=== PATIENT | female | born 1945 | race Hispanic/Latino ===

== ENCOUNTER 2017-09-03 09:17 | Emergency (ER) | payer MEDICARE ==
[2017-09-03] MEDS ORDERED: FENTANYL CITR 100 MCG/2 ML ONE (10:08)
[2017-09-03] MEDS ORDERED: KETOROLAC 30 MG/ML INJ ONE (10:08)
[2017-09-03] MEDS ORDERED: ONDANSETRON 4 MG/2 ML VIAL ONE (10:08)
[2017-09-03 10:54] LABS: BUN Blood Urea Nitrogen 18 mg/dL (6-20); Bicarbonate 28 mEq/L (21-31); Glucose Level 86 mg/dL (65-120); Potassium 3.7 mEq/L (3.6-5.0); Sodium Level 136 mEq/L (135-145)
[2017-09-03 11:00] LABS: Absolute Monocytes 0.4 K/uL (0.1-1.3); Absolute Neutrophil 2.4 K/uL (1.8-8.0); Basophils % 0.9 % (0-1.3); Eosinophils % 1.3 % (0-4.4); Lymphocytes % 41.5 % (15.3-44.8); MCH 29.8 pg (27.0-35.0); MCV 87.6 fL (80-100); MPV 9.3 fL (7.6-11.3); Monocytes % 8.3 % (3.3-12.3); RBC Red Blood Cell Count 4.34 M/uL (3.86-4.86)
--- NOTE | 2017-09-03 13:02 | RAD REPORT ---
EXAM DESCRIPTION: RAD - Shoulder Left 2 View - 09/03/2017 12:43 pm CLINICAL HISTORY: Left shoulder pain FINDINGS: No fracture or dislocation is seen. Mild osteoarthritis involves the acromioclavicular joint. Small calcification lies adjacent to the tracy perolateral aspect of the humeral head which may indicate calcific tendinitis. The bones are osteopor otic
--- NOTE | 2017-09-03 13:09 | EDPHYS ---
Physician Documentation [facility] Name: Elmira Jones Age: 71 yrs Sex: Female : 1945 Arrival Date: 09/03/2017 Time: 09:22 Bed 17 Private MD: ED Physician Ender Byrne HPI: 09/03 10:43 This 71 yrs old Female presents to ER via Ambulatory with complaints of Arm jr8 Pain, Leg Pain. 10:43 Patient presents to ED with complaints of low back pain radiating down right leg along jr8 with bilateral shoulder pain. Sudden onset today. Denies trauma . Severity of symptoms: At their worst the symptoms were moderate in the emergency department the symptoms are unchanged. The patient has not experienced similar symptoms in the past. The patient has not recently seen a physician. Historical: - Allergies: 10:07 PENICILLINS; iw 10:07 Aspirin; iw - Immunization history:: Adult Immunizations up to date. - Social history:: Smoking status: Patient/guardian denies using tobacco. ROS: 10:43 Eyes: Negative for injury, pain, redness, and discharge, ENT: Negative for injury, jr8 pain, and discharge, Neck: Negative for injury, pain, and swelling, Cardiovascular: Negative for chest pain, palpitations, and edema, Respiratory: Negative for shortness of breath, cough, wheezing, and pleuritic chest pain, Abdomen/GI: Negative for abdominal pain, nausea, vomiting, diarrhea, and constipation, Skin: Negative for injury, rash, and discoloration, Neuro: Negative for headache, weakness, numbness, tingling, and seizure. 10:43 Back: 10:43 Back: Positive for pain at rest, pain with movement, radiated pain, of the low back area. 10:43 MS/extremity: Positive for decreased range of motion, pain, tenderness, of the right and left shoulders . Exam: 10:43 Head/Face: Normocephalic, atraumatic. Eyes: Pupils equal round and reactive to light, jr8 extra-ocular motions intact. Lids and lashes normal. Conjunctiva and sclera are non-icteric and not injected. Cornea within normal limits. Periorbital areas with no swelling, redness, or edema. ENT: Nares patent. No nasal discharge, no septal abnormalities noted. Tympanic membranes are normal and external auditory canals are clear. Oropharynx with no redness, swelling, or masses, exudates, or evidence of obstruction, uvula midline. Mucous membranes moist. Neck: Trachea midline, no thyromegaly or masses palpated, and no cervical lymphadenopathy. Supple, full range of motion without nuchal rigidity, or vertebral point tenderness. No Meningismus. Chest/axilla: Normal chest wall appearance and motion. Nontender with no deformity. No lesions are appreciated. Cardiovascular: Regular rate and rhythm with a normal S1 and S2. No gallops, murmurs, or rubs. Normal PMI, no JVD. No pulse deficits. Respiratory: Lungs have equal breath sounds bilaterally, clear to auscultation and percussion. No rales, rhonchi or wheezes noted. No increased work of breathing, no retractions or nasal flaring. Abdomen/GI: Soft, non-tender, with normal bowel sounds. No distension or tympany. No guarding or rebound. No evidence of tenderness throughout. Skin: Warm, dry with normal turgor. Normal color with no rashes, no lesions, and no evidence of cellulitis. Neuro: Awake and alert, GCS 15, oriented to person, place, time, and situation. Cranial nerves II-XII grossly intact. Motor strength 5/5 in all extremities. Sensory grossly intact. Cerebellar exam normal. Normal gait. 10:43 Back: pain, that is moderate, of the left low back, ROM is painful, normal spinal alignment noted, CVA tenderness, is absent, vertebral tenderness, is not appreciated, Straight leg raises: left lower extremity illicits pain, at 30 degrees. 10:43 Musculoskeletal/extremity: Extremities: grossly normal except: noted in the right arm: decreased ROM, pain, noted in the left arm: decreased ROM, pain, Circulation is intact in all extremities. Sensation intact. Vital Signs: 10:39 BP 173 / 78; Pulse 61; Resp 16; Pulse Ox 100% on R/A; Pain 9/10; em 11:46 BP 156 / 67; Pulse 58; Resp 18; Pulse Ox 97% on R/A; em 12:59 BP 161 / 72; Pulse 64; Resp 18; Pulse Ox 99% on R/A; Pain 6/10; em MDM: 09:51 Patient medically screened. jr8 13:07 Data reviewed: vital signs, nurses notes, lab test result(s), radiologic studies, plain jr8 films, and as a result, I will discharge patient. Data interpreted: Pulse oximetry: on room air is 97 %. Interpretation: normal. Counseling: I had a detailed discussion with the patient and/or guardian regarding: the historical points, exam findings, and any diagnostic results supporting the discharge/admit diagnosis, lab results, radiology results, the need for outpatient follow up, a family practitioner, to return to the emergency department if symptoms worsen or persist or if there are any questions or concerns that arise at home. 09/03 10:01 Order name: CBC with Diff; Complete Time: 11:20 jr8 09/03 10:01 Order name: Basic Metabolic Panel; Complete Time: 10:56 jr8 09/03 12:03 Order name: Shoulder Left (2 View) XRAY; Complete Time: 13:07 em 09/03 10:01 Order name: IV; Complete Time: 10:39 jr8 09/03 10:01 Order name: EKG - Nurse/Tech; Complete Time: 10:39 jr8 09/03 10:01 Order name: EKG; Complete Time: 10:01 jr8 Administered Medications: 10:40 Drug: fentaNYL (PF) 50 mcg Route: IVP; Site: right antecubital; sg 12:03 Follow up: Response: No adverse reaction em 10:40 Drug: Zofran 4 mg Route: IVP; Site: right antecubital; sg 12:04 Follow up: Response: No adverse reaction em 10:40 Drug: TORadol 30 mg Route: IVP; Site: right antecubital; sg 12:04 Follow up: Response: No adverse reaction em Disposition: 17:22 Co-signature as Attending Physician, Ender Byrne MD I agree with the assessment and kdr plan of care. Disposition: 09/03/17 13:08 Discharged to Home. Impression: Lumbago with sciatica, right side, Pain in shoulder. - Condition is Stable. - Discharge Instructions: Sciatica, Shoulder Pain. - Prescriptions for Cyclobenzaprine 10 mg Oral Tablet - take 1 tablet by ORAL route every 8 hours As needed; 30 tablet. Tramadol 50 mg Oral Tablet - take 1 tablet by ORAL route every 8 hours as needed; 12 tablet. - Work release form, Medication Reconciliation Form, Thank You Letter, Antibiotic Education, Prescription Opioid Use form. - Follow up: Private Physician; When: 5 - 6 days; Reason: Recheck today's complaints, Continuance of care, Re-evaluation by your physician. - Problem is new. - Symptoms have improved. Signatures: Dispatcher [employer] Adair Martinez, RN RN Ender Vasquez MD MD kdr Munoz, Edgar, ALLIANCE DIRECTOR ALLIANCE DIRECTOR Alison Jimenez RN RN iw Roszak, Josh, PA PA jr8
--- NOTE | 2017-09-03 13:09 | ER ---
Nurse's Notes [facility] Name: Elmira Jones Age: 71 yrs Sex: Female : 1945 Arrival Date: 09/03/2017 Time: 09:22 Bed 17 Private MD: Diagnosis: Lumbago with sciatica, right side;Pain in shoulder Presentation: 09/03 10:05 Presenting complaint: Patient states: has had pain around waist, radiating to right leg iw since Wednesday, also has had pain to RFA, and left shoulder last night, throbbing pain, also has had intermittent numbness to left hand and numbness to her tongue when she eats sometimes, pt is diabetic. Transition of care: patient was not received from another setting of care. Onset of symptoms was August 29, 2017. Initial Sepsis Screen: Does the patient meet any 2 criteria? No. Patient's initial sepsis screen is negative. Does the patient have a suspected source of infection? No. Patient's initial sepsis screen is negative. Care prior to arrival: None. 10:05 Method Of Arrival: Ambulatory iw 10:05 Acuity: CM 3 iw Triage Assessment: 10:43 General: Appears in no apparent distress. uncomfortable, Behavior is calm, anxious. em Pain: Complains of pain in anterior aspect of right shoulder Pain currently is 8 out of 10 on a pain scale. Pain began 4 days ago. Historical: - Allergies: 10:07 PENICILLINS; iw 10:07 Aspirin; iw - Immunization history:: Adult Immunizations up to date. - Social history:: Smoking status: Patient/guardian denies using tobacco. Screenin:42 Abuse screen: Denies threats or abuse. Nutritional screening: No deficits noted. em Tuberculosis screening: No symptoms or risk factors identified. Fall Risk None identified. Assessment: 10:45 General: Appears in no apparent distress. uncomfortable, Behavior is cooperative, em anxious. Pain: Complains of pain in anterior aspect of right shoulder Pain Quality of pain is described as sharp, Pain began 4 days. Neuro: Level of Consciousness is awake, alert, obeys commands, Oriented to person, place, time, situation. Cardiovascular: Capillary refill < 3 seconds Patient's skin is warm and dry. Respiratory: Airway is patent Respiratory effort is even, unlabored, Respiratory pattern is regular, symmetrical. GI: Abdomen is round non-distended, Patient currently denies diarrhea, nausea, vomiting. : No signs and/or symptoms were reported regarding the genitourinary system. EENT: No signs and/or symptoms were reported regarding the EENT system. Derm: Skin is intact, Skin is pink, warm \T\ dry. Musculoskeletal: Range of motion: limited in right shoulder Reports pain in anterior aspect of right shoulder since 4 days ago. denies trauma. 11:00 Reassessment: Patient appears in no apparent distress at this time. I agree with above iw assessment by Mihai Rodriguez LVN. 11:55 Reassessment: Patient appears in no apparent distress at this time. Patient and/or em family updated on plan of care and expected duration. Pain level reassessed. Patient is alert, oriented x 3, equal unlabored respirations, skin warm/dry/pink. pt c/o left shoulder pain, SITA Knight notified, new orders received. 12:59 Reassessment: Patient appears in no apparent distress at this time. Patient and/or em family updated on plan of care and expected duration. Pain level reassessed. Patient is alert, oriented x 3, equal unlabored respirations, skin warm/dry/pink. Patient states feeling better. Vital Signs: 10:39 BP 173 / 78; Pulse 61; Resp 16; Pulse Ox 100% on R/A; Pain 9/10; em 11:46 BP 156 / 67; Pulse 58; Resp 18; Pulse Ox 97% on R/A; em 12:59 BP 161 / 72; Pulse 64; Resp 18; Pulse Ox 99% on R/A; Pain 6/10; em ED Course: 09:22 Patient arrived in ED. mr 09:51 Eugene Burnham PA is PHCP. jr8 09:51 Ender Byrne MD is Attending Physician. jr8 10:03 Mihai Rodriguez LVN is Primary Nurse. em 10:06 Triage completed. iw 10:35 No provider procedures requiring assistance completed. Inserted saline lock: 20 gauge em in right antecubital area, using aseptic technique. Blood collected. 10:35 Initial lab(s) drawn, by me, sent to lab. em 10:42 Arm band placed on. em 10:44 Patient has correct armband on for positive identification. Bed in low position. Call em light in reach. Side rails up X2. Adult w/ patient. 10:55 EKG done, by pathology tech. reviewed by Ender Byrne MD. tc 12:35 X-ray completed. Portable x-ray completed in exam room. Patient tolerated procedure ml well. 12:37 Shoulder Left (2 View) XRAY In Process Unspecified. EDMS 13:36 IV discontinued, intact, bleeding controlled, No redness/swelling at site. Pressure em dressing applied. Administered Medications: 10:40 Drug: fentaNYL (PF) 50 mcg Route: IVP; Site: right antecubital; sg 12:03 Follow up: Response: No adverse reaction em 10:40 Drug: Zofran 4 mg Route: IVP; Site: right antecubital; sg 12:04 Follow up: Response: No adverse reaction em 10:40 Drug: TORadol 30 mg Route: IVP; Site: right antecubital; sg 12:04 Follow up: Response: No adverse reaction em Outcome: 13:08 Discharge ordered by MD. hinton 13:36 Discharged to home ambulatory. em 13:36 Condition: good 13:36 Discharge instructions given to patient, Instructed on discharge instructions, follow up and referral plans. medication usage, Demonstrated understanding of instructions, follow-up care, medications, Prescriptions given X 2. 13:38 Patient left the ED. em Signatures: Dispatcher [employer] EDMS Adair Medellin, Farzana Perea RN mr Michael, Mihai, INSTRUCTOR KNITTING INSTRUCTOR KNITTING em Alison Jessica, WOOD Lopez, Eugene Blackwood PA PA jr8 Callis, Tiffany, tray drier operator EKG Ttc
--- NOTE | 2017-09-03 16:26 | EKG ---
Test Date: 2017-09-03 Test Time: 10:22:06 C 13 Catapult Operator: GIANA MEASUREMENT RESULTS: Intervals: Rate: 65 OH: 140 QRSD: 78 QT: 396 QTc: 411 Monson: P: 57 OH: 140 QRS: 50 T: 53 INTERPRETIVE STATEMENTS: Normal sinus rhythm Normal ECG Compared to ECG 07/14/2011 15:49:05 No significant changes Electronically Signed On 09-03-17 16:23:36 CDT by Harrison Bond
== END 2017-09-03 13:38 | disposition home or self-care (01) ==
LOC: ER 09:17
DX: M54.41 Lumbago with sciatica, right side (principal); M25.511 Pain in right shoulder; Z88.0 Allergy status to penicillin; Z88.6 Allergy status to analgesic agent
CPT/HCPCS: 36415; 73030; 80048; 85025; 93005; 96374; 96375; 99284; J2405; J3010

== ENCOUNTER 2018-08-27 19:13 | Emergency (ER) | payer MEDICARE ==
--- OUTSIDE RECORDS SUMMARY | 2018-08-27 19:16 | XMS REPORT ---
:1945 [facility] Team Providers Name Role Phone Torri Brewer Provider Role Unavailable Allergies No Known Allergies Problems Problem Type Condition Code Onset Dates Condition Status Assessment Osteoporosis, unspecified M81.0 Active osteoporosis type, unspecified pathological fracture presence Assessment Infection of right foot L08.9 Active Problem Low back pain, unspecified back M54.5 Active pain laterality, unspecified chronicity, with sciatica presence unspecified Assessment Bone spur of right foot M77.51 Active Problem Pain of left leg M79.605 Active Assessment Asthma, unspecified asthma J45.909 Active severity, unspecified whether complicated, unspecified whether persistent Problem Pain in right leg M79.604 Active Problem Sciatica, right side M54.31 Active Problem Pain in right arm M79.601 Active Problem Infection of right foot L08.9 Active Problem Other chronic pain G89.29 Active Problem Hyperlipidemia, unspecified E78.5 Active hyperlipidemia type Assessment Uncontrolled type 2 diabetes E11.65 Active mellitus without complication, without long-term current use of insulin Problem Bone spur of right foot M77.51 Active Assessment Hypertension, unspecified type I10 Active Problem Pain in right shoulder M25.511 Active Problem Pain in left shoulder M25.512 Active Problem Sciatica of left side M54.32 Active Problem Pain of left arm M79.602 Active Problem Osteoporosis, unspecified M81.0 Active osteoporosis type, unspecified pathological fracture presence Problem Uncontrolled type 2 diabetes E11.65 Active mellitus without complication, without long-term current use of insulin Problem Asthma, unspecified asthma J45.909 Active severity, unspecified whether complicated, unspecified whether persistent Problem Hypertension, unspecified type I10 Active Problem Seasonal allergies J30.2 Active Problem Follow-up exam Z09 Active Problem Wheezing R06.2 Active Problem SOB (shortness of breath) R06.02 Active Medications Medication Code Code Instructions Start End Status Dosage System Date Date Jardiance [facility] 47224578425 10 MG Orally October 08, Apr 23, Active 1 tablet Once a day 2017 [address] [facility] 54732301524 200-25 MCG/INH Active 1 puff Inhalation Once a day Calcium [facility] 72975195638 500 MG Orally Active 2 tablets Once a day One Touch Ultra [facility] 427365929412 1 In Vitro October 08, Jan 01, Active check once Test Strips check daily 2017 2018 daily Metformin HCl [facility] 13735504756 1000 MG Orally Active 1 tablet Twice a day with meals Lisinopril [facility] 47103559926 5 MG Orally Active 1 tablet Once a day Esomeprazole [facility] 79179489531 40 MG Orally Active 1 capsule Magnesium Once a day Advair Diskus [facility] 60405185486 250-50 MCG/DOSE October 25, Active 1 puff Inhalation 2017 Twice a day Esomeprazole [facility] 91978073945 40MG DR Orally Active 1 tablet Magnesium Once daily Glimepiride [facility] 46427218047 4 MG Orally Active 1 tablet Once a day Ibandronate [facility] 96984030006 150 MG Orally Sept Active 1 tablet Sodium Once per month [address] [facility] 00324839628 108 (90 Base) Active 2 puffs as MCG/ACT needed for Inhalation sob/wheezi every 4-6 hrs ng Januvia [facility] 28367706858 50 MG Orally August Active 1 tablet Once a day 2017 Results No Known Results Summary Purpose [employer] Submission
--- OUTSIDE RECORDS SUMMARY | 2018-08-27 19:16 | XMS REPORT ---
:1945 Author Organization [employer] Care Team Providers Name Role Phone Daniella Torri Provider Role Unavailable Allergies No Known Allergies Problems Problem Type Condition Code Onset Dates Condition Status Problem Low back pain, unspecified back M54.5 Active pain laterality, unspecified chronicity, with sciatica presence unspecified Problem Pain in right leg M79.604 Active Problem Pain of left leg M79.605 Active Problem Sciatica of left side M54.32 Active Problem Pain of left arm M79.602 Active Problem Other chronic pain G89.29 Active Problem Sciatica, right side M54.31 Active Problem Pain in right arm M79.601 Active Problem Pain in right shoulder M25.511 Active Problem Pain in left shoulder M25.512 Active Problem Asthma, unspecified asthma J45.909 Active severity, unspecified whether complicated, unspecified whether persistent Problem Hypertension, unspecified type I10 Active Problem Hyperlipidemia, unspecified E78.5 Active hyperlipidemia type Problem Wheezing R06.2 Active Problem SOB (shortness of breath) R06.02 Active Problem Osteoporosis, unspecified M81.0 Active osteoporosis type, unspecified pathological fracture presence Problem Seasonal allergies J30.2 Active Problem Uncontrolled type 2 diabetes E11.65 Active mellitus without complication, without long-term current use of insulin Problem Follow-up exam Z09 Active Medications No Known Medications Results No Known Results Summary Purpose eClinicalWorks Submission
--- OUTSIDE RECORDS SUMMARY | 2018-08-27 19:16 | XMS REPORT ---
:1945 Author Organization [employer] Care Team Providers Name Role Phone Daniella Torri Provider Role Unavailable Allergies, Adverse Reactions, Alerts Substance Reaction Event Type penicillin rash Drug Allergy aspirin Info Not Available Drug Allergy Problems Problem Type Condition Code Onset Dates Condition Status Problem Low back pain, unspecified back M54.5 Active pain laterality, unspecified chronicity, with sciatica presence unspecified Problem Pain in right leg M79.604 Active Problem Pain of left leg M79.605 Active Problem Sciatica of left side M54.32 Active Assessment Hypertension, unspecified type I10 Active Problem Pain of left arm M79.602 Active Assessment Asthma, unspecified asthma J45.909 Active severity, unspecified whether complicated, unspecified whether persistent Assessment Hyperlipidemia, unspecified E78.5 Active hyperlipidemia type Problem Other chronic pain G89.29 Active Problem Sciatica, right side M54.31 Active Problem Pain in right arm M79.601 Active Problem Pain in right shoulder M25.511 Active Problem Pain in left shoulder M25.512 Active Problem Asthma, unspecified asthma J45.909 Active severity, unspecified whether complicated, unspecified whether persistent Problem Hypertension, unspecified type I10 Active Assessment Uncontrolled type 2 diabetes E11.65 Active mellitus without complication, without long-term current use of insulin Problem Hyperlipidemia, unspecified E78.5 Active hyperlipidemia type Problem Wheezing R06.2 Active Problem SOB (shortness of breath) R06.02 Active Problem Osteoporosis, unspecified M81.0 Active osteoporosis type, unspecified pathological fracture presence Problem Seasonal allergies J30.2 Active Problem Uncontrolled type 2 diabetes E11.65 Active mellitus without complication, without long-term current use of insulin Problem Follow-up exam Z09 Active Medications Medication Code Code Instructions Start End Status Dosage System Date Date Lisinopril [facility] 36307933689 5 MG Orally Active 1 tablet Once a day Glimepiride ND 04513749861 4 MG Orally Active 1 tablet Once a day Esomeprazole [facility] 48968525818 40MG [address] Active TAKE ONE Magnesium CAPSULE BY MOUTH ONCE DAILY Calcium [facility] 66466233516 500 MG Orally Active 2 tablets Once a day Metformin HCl [facility] 96101800986 1000 MG Orally Active 1 tablet Twice a day with meals ProAir HFA [facility] 29783520276 108 (90 Base) Active 2 puffs as MCG/ACT needed for Inhalation sob/wheezi every 4-6 hrs ng Esomeprazole [facility] 81548708210 40 MG Orally Active 1 capsule Magnesium Once a day Breo Ellipta [facility] 10473440257 200-25 MCG/INH Active 1 puff Inhalation Once a day Ibandronate [facility] 28305166747 150 MG Orally Sept Active 1 tablet Sodium Once per month 2017 Januvia [facility] 72770443877 50 MG Orally August Active 1 tablet Once a day 2017 Results No Known Results Summary Purpose eClinicalWorks Submission
--- OUTSIDE RECORDS SUMMARY | 2018-08-27 19:16 | XMS REPORT ---
:1945 Author Organization [employer]Clinical[employer] Care Team Providers Name Role Phone Torri Brewer Provider Role Unavailable Allergies No Known Allergies Problems Problem Type Condition Code Onset Dates Condition Status Problem Pain in right leg M79.604 Active Problem Sciatica, right side M54.31 Active Problem Pain in right arm M79.601 Active Problem Infection of right foot L08.9 Active Problem Hyperlipidemia, unspecified E78.5 Active hyperlipidemia type Problem Other chronic pain G89.29 Active Problem Bone spur of right foot M77.51 Active Problem Pain in right shoulder M25.511 [...] Z09 Active Problem Wheezing R06.2 Active Problem Low back pain, unspecified back M54.5 Active pain laterality, unspecified chronicity, with sciatica presence unspecified Problem SOB (shortness of breath) R06.02 Active Problem Pain of left leg M79.605 Active Medications No Known Medications Results No Known Results Summary Purpose [employer] Submission
--- OUTSIDE RECORDS SUMMARY | 2018-08-27 19:16 | XMS REPORT ---
[...] Start End Status Dosage System Date Date One Touch [facility] 718506592739 1 In Vitro check October 08Jan 01, Active check Ultra Test daily 2017 2018 once Strips daily Jardiance [facility] 69941386536 10 MG Orally October 08November Active 1 tablet Once a day 2017 Results No Known Results Summary Purpose eClinicalWorks Submission
--- OUTSIDE RECORDS SUMMARY | 2018-08-27 19:16 | XMS REPORT ---
:1945 [facility] Address [address] [place] [address] [address] [place] [address] Care Team Providers Name Role Phone Unavailable Unavailable Unavailable Problems This patient has no known problems. Allergies, Adverse Reactions, Alerts This patient has no known allergies or adverse reactions. Medications This patient has no known medications.
--- OUTSIDE RECORDS SUMMARY | 2018-08-27 19:17 | XMS REPORT ---
:1945 Author Organization eClinicalWorks Care Team Providers Name Role Phone Daniella Torri Provider Role Unavailable Allergies, Adverse Reactions, Alerts Substance Reaction Event Type penicillin rash Drug Allergy aspirin Info Not Available Drug Allergy Problems Problem Type Condition Code Onset Dates Condition Status Assessment Osteoporosis, unspecified M81.0 Active osteoporosis type, unspecified pathological fracture presence Assessment Asthma, unspecified asthma J45.909 Active severity, unspecified whether complicated, unspecified whether persistent Assessment Hyperlipidemia, unspecified E78.5 Active hyperlipidemia type Assessment Uncontrolled type 2 diabetes E11.65 Active mellitus without complication, without long-term current use of insulin Assessment Hypertension, unspecified type I10 Active Problem Hyperlipidemia, unspecified E78.5 Active hyperlipidemia type Problem Pain in left shoulder M25.512 Active Problem Pain in right shoulder M25.511 Active Problem Asthma, unspecified asthma J45.909 Active severity, unspecified whether complicated, unspecified whether persistent Problem Pain of left leg M79.605 Active Problem Sciatica of left side M54.32 Active Problem Pain of left arm M79.602 Active Problem Ingrown toenail L60.0 Active Problem Rash and nonspecific skin eruption R21 Active Problem Uncontrolled type 2 diabetes E11.65 Active mellitus without complication, without long-term current use of insulin Problem Osteoporosis, unspecified M81.0 Active osteoporosis type, unspecified pathological fracture presence Problem Onychomycosis B35.1 Active Problem Hypertension, unspecified type I10 Active Problem Infection of right foot L08.9 Active Problem Other chronic pain G89.29 Active Problem Right foot pain M79.671 Active Problem Bone spur of right foot M77.51 Active Problem Seasonal allergies J30.2 Active Problem Follow-up exam Z09 Active Problem Wheezing R06.2 Active Problem SOB (shortness of breath) R06.02 Active Problem Pain in right arm M79.601 Active Problem Sciatica, right side M54.31 Active Problem Low back pain, unspecified back M54.5 Active pain laterality, unspecified chronicity, with sciatica presence unspecified Problem Pain in right leg M79.604 Active Medications Medication Code Code Instructions Start End Status Dosage System Date Date Ibandronate [facility] 03561600043 150 MG Orally Jan 13Jan Active 1 tablet Sodium Once a month 2017 Metformin HCl [facility] 28324727351 1000 MG Orally Jan 13, Active 1 tablet twice a day 2017 with a meal Esomeprazole [facility] 87002693983 20 mg Orally Jan 13, Active 1 capsule Magnesium Once a day 2017 Januvia [facility] 05410466983 50 MG Orally August Active 1 tablet Once a day 2017 Lisinopril [facility] 62712683435 5 MG Orally Jan 13, Active 1 tablet Once a day 2017 Advair Diskus [facility] 45175152343 250-50 MCG/DOSE October 25, Active 1 puff Inhalation 2017 Twice a day Calcium [facility] 93025811089 500 MG Orally Active 2 tablets Once a day Breo Ellipta [facility] 35812589453 200-25 MCG/INH Active 1 puff Inhalation Once a day Esomeprazole [facility] 10017762222 40 MG Orally Active 1 capsule Magnesium Once a day One Touch Ultra [facility] 254887983881 1 In Vitro October 08Jan 01, Active check once Test Strips check daily 2017 2018 daily ProAir HFA [facility] 48393620638 108 (90 Base) Active 2 puffs as MCG/ACT needed for Inhalation sob/wheezi every 4-6 hrs ng Results No Known Results Summary Purpose eClinicalWorks Submission
--- OUTSIDE RECORDS SUMMARY | 2018-08-27 19:17 | XMS REPORT ---
:1945 Author Organization eClinicalWorks Care Team Providers Name Role Phone Torri Brewer Provider Role Unavailable Allergies No Known Allergies Problems Problem Type Condition Code Onset Dates Condition Status Problem Pain in right arm M79.601 Active Problem Pain in left shoulder M25.512 Active Problem Sciatica, right side M54.31 Active Problem Bone spur of right foot M77.51 Active Problem Asthma, unspecified asthma J45.909 Active severity, unspecified whether complicated, unspecified whether persistent Problem Infection of right foot L08.9 Active Problem Hyperlipidemia, unspecified E78.5 Active hyperlipidemia type Problem Right foot pain M79.671 Active Problem Pain of left arm M79.602 Active Problem Pain in right shoulder M25.511 Active Problem Other chronic pain G89.29 Active Problem Sciatica of left side M54.32 Active Problem Uncontrolled type 2 diabetes E11.65 Active mellitus without complication, without long-term current use of insulin Problem Wheezing R06.2 Active Problem Hypertension, unspecified type I10 Active Problem Osteoporosis, unspecified M81.0 Active osteoporosis type, unspecified pathological fracture presence Problem Follow-up exam Z09 Active Problem Low back pain, unspecified back M54.5 Active pain laterality, unspecified chronicity, with sciatica presence unspecified Problem SOB (shortness of breath) R06.02 Active Problem Pain of left leg M79.605 Active Problem Seasonal allergies J30.2 Active Problem Pain in right leg M79.604 Active Medications Medication Code Code Instructions Start End Date Status Dosage System Date Lisinopril ND 41272063431 5 MG Orally Jan 13, Active 1 tablet Once a day 2017 Ibandronate ND 61363159819 150 MG Orally Jan 13July Active 1 tablet Sodium once a month 2017 Esomeprazole ND 78953126718 20 MG Orally Jan 13, Active 1 capsule Magnesium Once a day 2017 Metformin HCl ND 07283274170 1000 MG Orally Jan 13, Active 1 tablet twice a day 2018 with a meal Results No Known Results Summary Purpose eClinicalWorks Submission
--- OUTSIDE RECORDS SUMMARY | 2018-08-27 19:17 | XMS REPORT ---
:1945 Author Organization [employer]ClinicalWorks Care Team Providers Name Role Phone Rodolfo Breweren Provider Role Unavailable Allergies No Known Allergies Problems Problem Type Condition Code Onset Dates Condition Status Problem Sciatica, right side M54.31 Active Problem Pain in right shoulder M25.511 Active Problem Pain in left shoulder M25.512 Active Problem Right foot pain M79.671 Active Problem Hypertension, unspecified type I10 Active Problem Bone spur of right foot M77.51 Active Problem Asthma, unspecified asthma J45.909 Active severity, unspecified whether complicated, unspecified whether persistent Problem Hyperlipidemia, unspecified E78.5 Active hyperlipidemia type Problem Rash and nonspecific skin eruption R21 Active Problem Sciatica of left side M54.32 Active Problem Pain of left arm M79.602 Active Problem Infection of right foot L08.9 Active Problem Other chronic pain G89.29 Active Problem Wheezing R06.2 Active Problem SOB (shortness of breath) R06.02 Active Problem Osteoporosis, unspecified M81.0 Active osteoporosis type, unspecified pathological fracture presence Problem Uncontrolled type 2 diabetes E11.65 Active mellitus without complication, without long-term current use of insulin Problem Low back pain, unspecified back M54.5 Active pain laterality, unspecified chronicity, with sciatica presence unspecified Problem Pain of left leg M79.605 Active Assessment Rash and nonspecific skin eruption R21 Active Problem Seasonal allergies J30.2 Active Problem Pain in right leg M79.604 Active Problem Follow-up exam Z09 Active Problem Pain in right arm M79.601 Active Medications Medication Code Code Instructions Start End Status Dosage System Date Date Lisinopril ND 49391864482 5 MG Orally Jan 13, Active 1 tablet Once a day 2017 Calcium NDC 61954987456 500 MG Orally Active 2 tablets Once a day Metformin HCl NDC 68080862106 1000 MG Orally Jan 13, Active 1 tablet twice a day 2018 with a meal One Touch Ultra ND 473032664342 1 In Vitro October 08, Aug 25, Active check once Test Strips check daily 2017 2018 daily Advair Diskus [facility] 59105172316 250-50 MCG/DOSE October 25, Active 1 puff Inhalation 2017 Twice a day Jardiance ND 38879649815 10 MG Orally October 08Apr 23, Active 1 tablet Once a day 2017 2017 Esomeprazole [facility] 90925500809 40 MG Orally Active 1 capsule Magnesium Once a day Ibandronate [facility] 97470192623 150 MG Orally Jan 13July Active 1 tablet Sodium once a month 2017 Fluocinonide [facility] 79969982750 0.05 % Jan 26Feb 25, Active Apply Externally 2017 2017 sparingly Twice daily to affected area(s) Esomeprazole [facility] 78859301003 20 MG Orally Jan 13, Active 1 capsule Magnesium Once a day 2017 Breo Ellipta [facility] 71127445982 200-25 MCG/INH Active 1 puff Inhalation Once a day ProAir HFA [facility] 27212378522 108 (90 Base) Active 2 puffs as MCG/ACT needed for Inhalation sob/wheezin every 4-6 hrs g Januvia [facility] 42944463091 50 MG Orally August Active 1 tablet Once a day 2017 Results No Known Results Summary Purpose eClinicalWorks Submission
--- OUTSIDE RECORDS SUMMARY | 2018-08-27 19:17 | XMS REPORT ---
[...] Pain of left leg M79.605 Active Assessment Right foot pain M79.671 Active Problem Seasonal allergies J30.2 Active Problem Pain in right leg M79.604 Active Medications No Known Medications Results No Known Results Summary Purpose eClinicalWorks Submission
--- OUTSIDE RECORDS SUMMARY | 2018-08-27 19:17 | XMS REPORT ---
[...] Pain in right arm M79.601 Active Medications No Known Medications Results No Known Results Summary Purpose eClinicalLocalView Submission
--- OUTSIDE RECORDS SUMMARY | 2018-08-27 19:17 | XMS REPORT ---
:1945 [facility] Team Providers Name Role Phone Rodolfo Breweren Provider Role Unavailable Allergies No Known Allergies Problems Problem Type Condition Code Onset Dates Condition Status Assessment Hyperlipidemia, unspecified E78.5 Active hyperlipidemia type [...] Status Dosage System Date Date One Touch Ultra [facility] 919793196954 1 In Vitro October 08Jan 01, Active check once Test Strips check daily 2017 2018 daily Metformin HCl [facility] 55419843026 1000 MG Orally Jan 13, Active 1 tablet twice a day 2017 with a meal ProAir HFA [facility] 13130615956 108 (90 Base) Active 2 puffs as MCG/ACT needed for Inhalation sob/wheezi every 4-6 hrs ng Esomeprazole [facility] 19078819788 20 mg Orally Jan 13, Active 1 capsule Magnesium Once a day 2017 Esomeprazole [facility] 82375082018 40 MG Orally Active 1 capsule Magnesium Once a day Calcium [facility] 07063526331 500 MG Orally Active 2 tablets Once a day Lisinopril [facility] 10828600434 5 MG Orally Jan 13, Active 1 tablet Once a day 2017 Nesina [facility] 04298330209 25 mg Orally May 06, Active 1 tablet Once a day for 2017 diabetes Fish Oil [facility] 75399252073 1000 MG Orally May 06, May 06, Active 1 capsule Twice a day 2017 2017 (OTC) Ibandronate [facility] 89791777430 150 MG Orally Jan 13Jan Active 1 tablet Sodium Once a month 2017 Januvia [facility] 73030373525 50 MG Orally August Active 1 tablet Once a day 2017 Breo Ellipta [facility] 80586839391 200-25 MCG/INH Active 1 puff Inhalation Once a day Advair Diskus [facility] 42033457193 250-50 MCG/DOSE October 25, Active 1 puff Inhalation 2017 Twice a day Results No Known Results Summary Purpose eClinicalWorks Submission
--- OUTSIDE RECORDS SUMMARY | 2018-08-27 19:17 | XMS REPORT ---
:1945 Author Organization eClinicalWorks Care Team Providers Name Role Phone Torri Brewer Provider Role Unavailable Allergies, Adverse Reactions, Alerts Substance Reaction Event Type penicillin rash Drug Allergy aspirin Info Not Available Drug Allergy Problems Problem Type Condition Code Onset Dates Condition Status Assessment Right foot pain M79.671 Active Assessment Osteoporosis, unspecified M81.0 Active osteoporosis type, unspecified pathological fracture presence Assessment Asthma, unspecified asthma J45.909 Active severity, unspecified whether complicated, unspecified whether persistent Assessment Hyperlipidemia, unspecified E78.5 Active hyperlipidemia type Problem Pain of left leg M79.605 Active Assessment Uncontrolled type 2 diabetes E11.65 Active mellitus without complication, without long-term current use of insulin Problem Pain in right leg M79.604 Active Assessment Hypertension, unspecified type I10 Active Problem Pain in right arm M79.601 Active Problem Pain in left shoulder M25.512 Active Problem Sciatica, right side M54.31 Active Problem Bone spur of right foot M77.51 Active Problem Infection of right foot L08.9 Active Problem Asthma, unspecified asthma J45.909 Active [...] SOB (shortness of breath) R06.02 Active Problem Seasonal allergies J30.2 Active Medications Medication Code Code Instructions Start End Status Dosage System Date Date Advair Diskus [facility] 58753025051 250-50 October Active 1 puff MCG/DOSE 18, Inhalation 2017 Twice a day Metformin HCl ND 63183422502 1000 MG Orally Sept Active 1 tablet twice a day 06, with a meal 2017 Calcium ND 03116459023 500 MG Orally Active 2 tablets Once a day Glimepiride ND 72683607047 4 MG Orally Sept Inactive 1 tablet Once a day , with 2018 breakfast or the first main meal of the day Ibandronate ND 69796961682 150 MG Orally Jan Active 1 tablet Sodium once a month 2017 Lisinopril ND 68197938238 5 MG Orally Jan Active 1 tablet Once a day [address] [facility] 59120379672 200-25 MCG/INH Active 1 puff Inhalation Once a day Jardiance [facility] 23025051327 10 MG Orally OctoberApr 23, Active 1 tablet Once a day [address] [facility] 49767495255 50 MG Orally August Active 1 tablet Once a day [address] [facility] 90283823737 40 MG Orally Active 1 capsule Magnesium Once a day ProAir HFA [facility] 63748483329 108 (90 Base) Active 2 puffs as MCG/ACT needed for Inhalation sob/wheezin every 4-[address] [facility] 08805110677 20 MG Orally Sept Active 1 capsule Magnesium Once a day 2017 One Touch Ultra ND 678786119972 1 In Vitro OctoberJan 01, Active check once Test Strips check daily 2018 daily 2017 Results No Known Results Summary Purpose eClinicalWorks Submission
--- OUTSIDE RECORDS SUMMARY | 2018-08-27 19:17 | XMS REPORT ---
[...] Start End Status Dosage System Date Date Glimepiride [facility] 52457069596 4 MG Orally Once Jan 18, Active 1 tablet a day 2018 with breakfast or the first main meal of the day Results No Known Results Summary Purpose eClinicalWorks Submission
--- OUTSIDE RECORDS SUMMARY | 2018-08-27 19:18 | XMS REPORT ---
:1945 Author Organization eClinicalWorks Care Team Providers Name Role Phone Torri Brewer Provider Role Unavailable Allergies No Known Allergies Problems Problem Type Condition Code Onset Dates Condition Status Problem Hyperlipidemia, unspecified E78.5 Active hyperlipidemia type [...]
--- OUTSIDE RECORDS SUMMARY | 2018-08-27 19:18 | XMS REPORT ---
:1945 [facility] Care Team Providers Name Role Phone Daniella Torri Provider Role Unavailable Allergies No Known Allergies Problems Problem Type Condition Code Onset Dates Condition Status Assessment Hypertension, unspecified type I10 Active Assessment Osteoporosis, unspecified M81.0 Active osteoporosis type, unspecified pathological fracture presence Assessment Uncontrolled type 2 diabetes E11.65 Active [...] End Status Dosage System Date Date Ibandronate [facility] 56724197754 150 MG Orally Jan 13Jan Active 1 tablet Sodium Once a month 2017 Metformin HCl [facility] 37895171755 1000 MG Orally Jan 13, Active 1 tablet twice a day 2017 with a meal Lisinopril [facility] 23846099169 5 MG Orally Jan 13, Active 1 tablet Once a day 2017 Esomeprazole [facility] 04450669050 40 MG Orally Active 1 capsule Magnesium Once a day Results No Known Results Summary Purpose eClinicalWorks Submission
--- OUTSIDE RECORDS SUMMARY | 2018-08-27 19:18 | XMS REPORT ---
:1945 Author Organization eClinicalWorks Care Team Providers Name Role Phone Torri Brewer Provider Role Unavailable Allergies No Known Allergies Problems Problem Type Condition Code Onset Dates Condition Status Assessment Uncontrolled type 2 diabetes E11.65 Active [...] Start End Status Dosage System Date Date Calcium NDC 23508581152 500 MG Orally Active 2 tablets Once a day Metformin HCl NDC 37959991564 1000 MG Orally Jan 13, Active 1 tablet twice a day 2017 with a meal Nesina ND 89749021962 25 mg Orally May 06, Active 1 tablet Once a day for 2017 diabetes Blood Glucose ND 0 as directed May 13, Active as directed Monitor Test BS once 2018 (DISPENSE daily BLOOD GLUCOSE MONITOR FORMULARY TO INSURANCE) Elly [facility] 20225894805 50 MG Orally August Active 1 tablet Once a day 2017 One Touch Ultra ND 084842601664 1 In Vitro October 08, Jan 01, Active check once Test Strips check daily 2017 2018 daily Lisinopril [facility] 80200173816 5 MG Orally Jan 13, Active 1 tablet Once a day 2017 Esomeprazole [facility] 82575109587 20 mg Orally Jan 13, Active 1 capsule Magnesium Once a day 2017 Ibandronate [facility] 93171414741 150 MG Orally Jan 13, Jan Active 1 tablet Sodium Once a month 2017 ProAir HFA [facility] 30600856013 108 (90 Base) Active 2 puffs as MCG/ACT needed for Inhalation sob/wheezin every 4-6 hrs g Esomeprazole [facility] 81957136326 40 MG Orally Active 1 capsule Magnesium Once a day Breo Ellipta [facility] 35049410312 200-25 MCG/INH Active 1 puff Inhalation Once a day Advair Diskus [facility] 76721787282 250-50 MCG/DOSE October 25, Active 1 puff Inhalation 2017 Twice a day Results No Known Results Summary Purpose eClinicalWorks Submission
--- OUTSIDE RECORDS SUMMARY | 2018-08-27 19:18 | XMS REPORT ---
:1945 Author Organization eClinicalWorks Care Team Providers Name Role Phone Daniella Torri Provider Role Unavailable Allergies, Adverse Reactions, Alerts Substance Reaction Event Type penicillin rash Drug Allergy aspirin Info Not Available Drug Allergy Problems Problem Type Condition Code Onset Dates Condition Status Assessment Onychomycosis B35.1 Active Assessment Ingrown toenail L60.0 Active Assessment Hyperlipidemia, unspecified E78.5 Active hyperlipidemia type [...] Dosage System Date Date One Touch Ultra [facility] 390392455583 1 In Vitro October 08Jan 01, Active check once Test Strips check daily 2017 2018 daily Lisinopril [facility] 58610433046 5 MG Orally Jan 13, Active 1 tablet Once a day 2017 Januvia [facility] 46449107381 50 MG Orally August Active 1 tablet Once a day 2017 Ibandronate ND 99450765193 150 MG Orally Jan 13Jan Active 1 tablet Sodium Once a month 2017 Calcium [facility] 37639228890 500 MG Orally Active 2 tablets Once a day ProAir HFA [facility] 67954531607 108 (90 Base) Active 2 puffs as MCG/ACT needed for Inhalation sob/wheezi every 4-6 hrs ng Advair Diskus [facility] 49971298864 250-50 MCG/DOSE October 25, Active 1 puff Inhalation 2017 Twice a day Esomeprazole [facility] 62484936537 40 MG Orally Active 1 capsule Magnesium Once a day Breo Ellipta [facility] 30898720360 200-25 MCG/INH Active 1 puff Inhalation Once a day Esomeprazole [facility] 69868833321 20 mg Orally Jan 13, Active 1 capsule Magnesium Once a day 2017 Nesina [facility] 19900927535 25 mg Orally May 06, Active 1 tablet Once a day for 2017 diabetes Metformin HCl [facility] 60086326890 1000 MG Orally Jan 13, Active 1 tablet twice a day 2017 with a meal Results No Known Results Summary Purpose eClinicalWorks Submission
[2018-08-27] MEDS ORDERED: METHYLPREDNISOLONE 125 MG INJ ONE (19:50)
[2018-08-27] MEDS ORDERED: ALBUTEROL 2.5 MG/3 ML NEB SOL ONE (19:51)
[2018-08-27] MEDS ORDERED: IPRATROPIUM BROM 0.5MG/2.5ML ONE (19:51)
[2018-08-27 20:06] LABS: Absolute Lymphocytes (CBC) 3.9 K/uL (0.7-4.9); Absolute Monocytes 0.6 K/uL (0.1-1.3); Absolute Neutrophil 5.9 K/uL (1.8-8.0); Basophils % 0.7 % (0-1.3); Eosinophils % 0.7 % (0-4.4); Hematocrit 41.2 % (36.0-45.0); Lymphocytes % 37.2 % (15.3-44.8); MPV 9.3 fL (7.6-11.3); Monocytes % 5.3 % (3.3-12.3); RBC Red Blood Cell Count 4.53 M/uL (3.86-4.86)
[2018-08-27 20:27] LABS: ALT/SGPT 20 U/L (12-78); AST/SGOT 16 U/L (15-37); Alkaline Phosphatase 62 U/L (45-117); BUN Blood Urea Nitrogen 13 mg/dL (7-18); Bicarbonate 27 mmol/L (21-32); Bilirubin Direct < 0.1 mg/dL (0-0.2); Bilirubin Total 0.3 mg/dL (0.2-1.0); Glucose Level 164 mg/dL (74-106); Potassium 4.1 mmol/L (3.5-5.1); Protein, Total 7.9 g/dL (6.4-8.2); Sodium Level 141 mmol/L (136-145)
[2018-08-27 20:31] LABS: Magnesium 1.2 mg/dL (1.8-2.4)
[2018-08-27 20:48] LABS: Blood Gas Oxyhemoglobin 87.1 % (94-97)
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
[2018-08-27] MEDS ORDERED: Magnesium Sulfate 2gm IVPB 2 G/50 ML BAG IV ONE (20:54)
[2018-08-27] MEDS ORDERED: LEVALBUTEROL 1.25 MG/3 ML NEB ONE (23:55)
--- NOTE | 2018-08-28 00:24 | ER ---
Nurse's Notes [facility] Name: Elmira Jones Age: 72 yrs Sex: Female : 1945 Arrival Date: 08/27/2018 Time: 19:15 Bed 20 [facility] MD: Torri Brewer Diagnosis: Unspecified asthma with (acute) exacerbation Presentation: 08/27 19:27 Presenting complaint: Patient states: at 1500 today I was cleaning my toilet and I used la1 a combination of toilet bowl supervisor bottle house cleaners, dish soap, and bleach. After that I started to get very SOB. I did the same thing 20 years ago and my Dr told me that's why I have holes in my lungs. Transition of care: patient was not received from another setting of care. Onset of symptoms was August 27, 2018. Risk Assessment: Do you want to hurt yourself or someone else? Patient reports no desire to harm self or others. Initial Sepsis Screen: Does the patient meet any 2 criteria? No. Patient's initial sepsis screen is negative. Does the patient have a suspected source of infection? No. Patient's initial sepsis screen is negative. Care prior to arrival: None. 19:27 Method Of Arrival: Wheelchair la1 19:27 Acuity: CM 2 la1 Triage Assessment: 19:36 General: Appears in no apparent distress. uncomfortable, Behavior is calm, cooperative. cc3 Respiratory: Reports shortness of breath on exertion Onset: The symptoms/episode began/occurred today, the patient has moderate shortness of breath. Historical: - Allergies: 19:29 Aspirin; la1 19:29 PENICILLINS; la1 - PMHx: 19:29 Diabetes - NIDDM; Hypertension; Asthma; la1 - Immunization history:: Adult Immunizations up to date. - Social history:: Smoking status: Patient/guardian denies using tobacco. - Ebola Screening: : No symptoms or risks identified at this time. Screenin:36 Abuse screen: Denies threats or abuse. Denies injuries from another. Nutritional cc3 screening: No deficits noted. Tuberculosis screening: No symptoms or risk factors identified. Fall Risk Ambulatory Aid- None/Bed Rest/Nurse Assist (0 pts). Gait- Normal/Bed Rest/Wheelchair (0 pts) Mental Status- Oriented to own ability (0 pts). Assessment: 19:36 General: Appears in no apparent distress. uncomfortable, Behavior is cooperative. Pain: cc3 Denies pain. Neuro: Level of Consciousness is awake, alert, obeys commands, Oriented to person, place, time, situation, Appropriate for age. Cardiovascular: Patient's skin is warm and dry. Rhythm is regular. Respiratory: Airway is compromised Respiratory effort is even, unlabored, Respiratory pattern is regular, symmetrical, Breath sounds with wheezes bilaterally. GI: Abdomen is round non-distended. : No signs and/or symptoms were reported regarding the genitourinary system. EENT: No signs and/or symptoms were reported regarding the EENT system. Derm: No signs and/or symptoms reported regarding the dermatologic system. Musculoskeletal: Circulation, motion, and sensation intact. Range of motion: intact in all extremities. 20:45 Reassessment: Patient appears in no apparent distress at this time. Patient and/or cc3 family updated on plan of care and expected duration. Pain level reassessed. Patient is alert, oriented x 3, equal unlabored respirations, skin warm/dry/pink. 21:18 Reassessment: Patient appears in no apparent distress at this time. Patient and/or cc3 family updated on plan of care and expected duration. Pain level reassessed. Patient is alert, oriented x 3, equal unlabored respirations, skin warm/dry/pink. 22:23 Reassessment: Patient appears in no apparent distress at this time. Patient and/or cc3 family updated on plan of care and expected duration. Pain level reassessed. Patient is alert, oriented x 3, equal unlabored respirations, skin warm/dry/pink. 23:30 Reassessment: Patient appears in no apparent distress at this time. Patient and/or cc3 family updated on plan of care and expected duration. Pain level reassessed. Patient is alert, oriented x 3, equal unlabored respirations, skin warm/dry/pink. Assisted the patient to walk around and she said she felt better but still oxygen saturation on room air is 93%, HUMAN RESOURCES RECRUITER Lilibeth informed. 08/28 00:30 Reassessment: Patient appears in no apparent distress at this time. Patient and/or cc3 family updated on plan of care and expected duration. Pain level reassessed. Patient is alert, oriented x 3, equal unlabored respirations, skin warm/dry/pink. KODY Mcelroy discharged the patient home with prescription given. IV cannula removed and patient left ER vitally stable and ambulatory with family. Patient denies pain at this time. Patient states feeling better. Patient states symptoms have improved. Vital Signs: 08/27 19:29 BP 135 / 77; Pulse 120; Resp 24; Temp 97.8; Pulse Ox 88% on R/A; Weight 73.03 kg; la1 Height 5 ft. 1 in. (154.94 cm); 20:20 BP 153 / 75; Pulse 116; Resp 19 S; Pulse Ox 94% on 2 lpm NC; cc3 21:30 BP 119 / 76; Pulse 104; Resp 18 S; Pulse Ox 94% on 2 lpm NC; cc3 22:40 BP 126 / 63; Pulse 93; Resp 18 S; Pulse Ox 94% on 2 lpm NC; cc3 23:15 BP 122 / 63; Pulse 96; Resp 17 S; Pulse Ox 95% on 2 lpm NC; cc3 23:30 BP 161 / 71; Pulse 96; Resp 18 S; Pulse Ox 93% on R/A; cc3 08/28 00:02 BP 158 / 66; Pulse 102; Resp 19 S; Pulse Ox 96% on R/A; cc3 00:15 BP 151 / 70; Pulse 97; Resp 19 S; Pulse Ox 96% on R/A; cc3 08/27 19:29 Body Mass Index 30.42 (73.03 kg, 154.94 cm) la1 ED Course: 08/27 19:15 Patient arrived in ED. es 19:15 Torri Brewer MD is Private Physician. es 19:24 Howard Mcelroy NP is PHCP. pm1 19:24 Ray Santiago MD is Attending Physician. pm1 19:28 Triage completed. la1 19:29 Arm band placed on right wrist. la1 19:36 Joaquina Castillo is Primary Nurse. cc3 19:36 Patient has correct armband on for positive identification. Placed in gown. Bed in low cc3 position. Call light in reach. Side rails up X 1. school lunch monitor on. Pulse ox on. NIBP on. 19:45 Inserted saline lock: 20 gauge in right antecubital area, using aseptic technique. cc3 Blood collected. 20:07 Chest Single View XRAY In Process Unspecified. EDMS 20:34 Notified ED physician of a critical lab result(s). Magnesium of 1.2 Notified primary jb4 nurse of Critical lab of Magnesium of 1.2. 22:27 CT Chest Wo Con In Process Unspecified. EDMS 04 00:30 No provider procedures requiring assistance completed. IV discontinued, intact, cc3 bleeding controlled, No redness/swelling at site. Pressure dressing applied. Administered Medications: 08/27 19:35 Drug: Albuterol - atroVENT (3:1) (2.5 mg - 0.5 mg) 3 ml Route: Nebulizer; cc3 20:15 Follow up: Response: No adverse reaction; Marked relief of symptoms cc3 19:45 Drug: SOLU-Medrol 125 mg Route: IVP; Site: right antecubital; cc3 20:15 Follow up: Response: No adverse reaction; Marked relief of symptoms cc3 20:45 Drug: Magnesium Sulfate 2 grams Route: IVPB; Infused Over: 2 hrs; Site: right cc3 antecubital; 23:00 Follow up: Response: No adverse reaction; IV Status: Completed infusion; IV Intake: [id number] 23:40 Drug: Xopenex 1.25 mg Route: Inhalation; cc3 08/28 00:15 Follow up: Response: No adverse reaction; Marked relief of symptoms cc3 Intake: 08/27 23:00 IV: 50ml; Total: 50ml. cc3 Outcome: 08/28 00:14 Discharge ordered by MD. pm1 00:30 Discharged to home ambulatory, with family. cc3 00:30 Condition: stable 00:30 Discharge instructions given to patient, family, Instructed on discharge instructions, follow up and referral plans. medication usage, Demonstrated understanding of instructions, follow-up care, medications, Prescriptions given X 3. 00:39 Patient left the ED. cc3 Signatures: Dispatcher [employer] EDMS Laila Gregory Lee, RN RN la1 Howard Mcelroy NP HUMAN RESOURCES RECRUITER pm1 Ruben Perez RN RN jb4 Joaquina Castillo cc3
--- NOTE | 2018-08-28 00:24 | EDPHYS ---
Physician Documentation [facility] Name: Elmira Jones Age: 72 yrs Sex: Female : 1945 Arrival Date: 08/27/2018 Time: 19:15 Bed 20 Private MD: Torri Brewer ED Physician Ray Santiago HPI: 08/27 19:46 This 72 yrs old Female presents to ER via Wheelchair with complaints of pm1 Breathing Difficulty. 19:46 The patient has shortness of breath at rest. Onset: The symptoms/episode began/occurred pm1 today. Duration: The symptoms are continuous. The patient's shortness of breath is aggravated by bathroom cleaning chemicals. Associated signs and symptoms: Pertinent negatives: chest pain, non-productive cough, productive cough, fever, nausea, vomiting. Severity of symptoms: in the emergency department the symptoms are worse. The patient has experienced a previous episode, many years ago. The patient has not recently seen a physician. Patient was getting getting cleaning materials together to clean her bathroom and she got overwhelmed by the smell when she mixed them in the toilet. Patient with a history of asthma. Patient started to have wheezing and shortness of breath with breathing the chemicals. Took breathing treatment at home that did not help. Historical: - Allergies: 19:29 Aspirin; la1 19:29 PENICILLINS; la1 - PMHx: 19:29 Diabetes - NIDDM; Hypertension; Asthma; la1 - Immunization history:: Adult Immunizations up to date. - Social history:: Smoking status: Patient/guardian denies using tobacco. - Ebola Screening: : No symptoms or risks identified at this time. ROS: 19:46 Constitutional: Negative for fever, chills, and weight loss, Eyes: Negative for injury, pm1 pain, redness, and discharge, ENT: Negative for injury, pain, and discharge, Neck: Negative for injury, pain, and swelling, Cardiovascular: Negative for chest pain, palpitations, and edema. 19:46 Abdomen/GI: Negative for abdominal pain, nausea, vomiting, diarrhea, and constipation, Back: Negative for injury and pain, : Negative for injury, bleeding, discharge, and swelling, MS/Extremity: Negative for injury and deformity, Skin: Negative for injury, rash, and discoloration, Neuro: Negative for headache, weakness, numbness, tingling, and seizure. 19:46 Respiratory: Positive for shortness of breath, wheezing, Negative for sputum production. Exam: 19:46 Constitutional: This is a well developed, well nourished patient who is awake, alert, pm1 and in no acute distress. Head/Face: Normocephalic, atraumatic. Eyes: Pupils equal round and reactive to light, extra-ocular motions intact. Lids and lashes normal. Conjunctiva and sclera are non-icteric and not injected. Cornea within normal limits. Periorbital areas with no swelling, redness, or edema. ENT: Nares patent. No nasal discharge, no septal abnormalities noted. Tympanic membranes are normal and external auditory canals are clear. Oropharynx with no redness, swelling, or masses, exudates, or evidence of obstruction, uvula midline. Mucous membranes moist. Neck: Trachea midline, no thyromegaly or masses palpated, and no cervical lymphadenopathy. Supple, full range of motion without nuchal rigidity, or vertebral point tenderness. No Meningismus. Chest/axilla: Normal chest wall appearance and motion. Nontender with no deformity. No lesions are appreciated. Cardiovascular: Regular rate and rhythm with a normal S1 and S2. No gallops, murmurs, or rubs. Normal PMI, no JVD. No pulse deficits. 19:46 Abdomen/GI: Soft, non-tender, with normal bowel sounds. No distension or tympany. No guarding or rebound. No evidence of tenderness throughout. Back: No spinal tenderness. No costovertebral tenderness. Full range of motion. Skin: Warm, dry with normal turgor. Normal color with no rashes, no lesions, and no evidence of cellulitis. MS/ Extremity: Pulses equal, no cyanosis. Neurovascular intact. Full, normal range of motion. 19:46 Respiratory: the patient does not display signs of respiratory distress, Respirations: normal, Breath sounds: wheezing: expiratory is heard diffusely. 19:46 Neuro: Orientation: is normal, Motor: is normal, moves all fours, Sensation: is normal, no obvious gross deficits. Vital Signs: 19:29 BP 135 / 77; Pulse 120; Resp 24; Temp 97.8; Pulse Ox 88% on R/A; Weight 73.03 kg; la1 Height 5 ft. 1 in. (154.94 cm); 20:20 BP 153 / 75; Pulse 116; Resp 19 S; Pulse Ox 94% on 2 lpm NC; cc3 21:30 BP 119 / 76; Pulse 104; Resp 18 S; Pulse Ox 94% on 2 lpm NC; cc3 22:40 BP 126 / 63; Pulse 93; Resp 18 S; Pulse Ox 94% on 2 lpm NC; cc3 23:15 BP 122 / 63; Pulse 96; Resp 17 S; Pulse Ox 95% on 2 lpm NC; cc3 23:30 BP 161 / 71; Pulse 96; Resp 18 S; Pulse Ox 93% on R/A; cc3 08/28 00:02 BP 158 / 66; Pulse 102; Resp 19 S; Pulse Ox 96% on R/A; cc3 00:15 BP 151 / 70; Pulse 97; Resp 19 S; Pulse Ox 96% on R/A; cc3 08/27 19:29 Body Mass Index 30.42 (73.03 kg, 154.94 cm) la1 MDM: 08/27 19:30 Patient medically screened. pm1 08/28 00:14 Data reviewed: vital signs. Data interpreted: Pulse oximetry: on room air is 96 %. pm1 Interpretation: normal. Counseling: I had a detailed discussion with the patient and/or guardian regarding: the historical points, exam findings, and any diagnostic results supporting the discharge/admit diagnosis, lab results, radiology results, the need for outpatient follow up, to return to the emergency department if symptoms worsen or persist or if there are any questions or concerns that arise at home. 08/27 19:39 Order name: ABG; Complete Time: 20:53 pm1 08/27 19:39 Order name: Basic Metabolic Panel; Complete Time: 20:38 pm1 08/27 19:39 Order name: Chest Single View XRAY; Complete Time: 20:53 pm1 08/27 19:39 Order name: CBC with Diff; Complete Time: 20:17 pm1 08/27 19:39 Order name: LFT's; Complete Time: 20:38 pm1 08/27 19:39 Order name: Magnesium; Complete Time: 20:38 pm1 08/27 19:39 Order name: IV Saline Lock; Complete Time: 19:52 pm1 08/27 19:39 Order name: Labs collected and sent; Complete Time: 20:04 pm1 08/27 19:39 Order name: O2 Per Protocol; Complete Time: 19:52 pm1 08/27 21:32 Order name: CT Chest Wo Con pm1 08/27 19:39 Order name: O2 Sat Monitoring; Complete Time: 19:53 pm1 Administered Medications: 08/27 19:35 Drug: Albuterol - atroVENT (3:1) (2.5 mg - 0.5 mg) 3 ml Route: Nebulizer; cc3 20:15 Follow up: Response: No adverse reaction; Marked relief of symptoms cc3 19:45 Drug: SOLU-Medrol 125 mg Route: IVP; Site: right antecubital; cc3 20:15 Follow up: Response: No adverse reaction; Marked relief of symptoms cc3 20:45 Drug: Magnesium Sulfate 2 grams Route: IVPB; Infused Over: 2 hrs; Site: right cc3 antecubital; 23:00 Follow up: Response: No adverse reaction; IV Status: Completed infusion; IV Intake: [id number] 23:40 Drug: Xopenex 1.25 mg Route: Inhalation; 3 08/28 00:15 Follow up: Response: No adverse reaction; Marked relief of symptoms cc3 Disposition: 08/28/18 00:14 Discharged to Home. Impression: Unspecified asthma with (acute) exacerbation. - Condition is Stable. - Discharge Instructions: Asthma, Adult, How to Use an Inhaler. - Prescriptions for Albuterol Sulfate 2.5 mg /3 mL (0.083 %) Inhalation Solution for Nebulization - inhale 1 unit by NEBULIZATION route every 8 hours As needed; 1 box. Medrol (Aaron) 4 mg Oral Tablets, Dose Pack - take 1 tablet by ORAL route as directed - follow package instructions; 1 packet. Albuterol Sulfate 90 mcg/actuation - inhale 1-2 puff by INHALATION route every 4-6 hours; 1 Inhaler. - Medication Reconciliation Form, Thank You Letter, Antibiotic Education, Prescription Opioid Use form. - Follow up: Emergency Department; When: As needed; Reason: Worsening of condition. Follow up: Private Physician; When: 2 - 3 days; Reason: Recheck today's complaints, Continuance of care, Re-evaluation by your physician. - Problem is new. - Symptoms have improved. Addendum: 08/30/2018 01:24 Co-signature as Attending Physician, Ray Santiago MD. g s Signatures: Dispatcher [employer] EDMS Morales Castro, RN RN la1 Howard Mcelroy, INTERN ARCHITECT INTERN ARCHITECT pm1 Ray Santiago MD MD gs Cordel, Charlene cc3 Corrections: (The following items were deleted from the chart) 08/28 00:39 00:14 08/28/2018 00:14 Discharged to Home. Impression: Unspecified asthma with (acute) cc3 exacerbation. Condition is Stable. Discharge Instructions: Asthma, Adult, How to Use an Inhaler. Prescriptions for Albuterol Sulfate 2.5 mg /3 mL (0.083 %) Inhalation Solution for Nebulization - inhale 1 unit by NEBULIZATION route every 8 hours As needed; 1 box, Medrol (Aaron) 4 mg Oral Tablets, Dose Pack - take 1 tablet by ORAL route as directed - follow package instructions; 1 packet, Albuterol Sulfate 90 mcg/actuation - inhale 1-2 puff by INHALATION route every 4-6 hours; 1 Inhaler. and Forms are Medication Reconciliation Form, Thank You Letter, Antibiotic Education, Prescription Opioid Use. Follow up: Emergency Department; When: As needed; Reason: Worsening of condition. Follow up: Private Physician; When: 2 - 3 days; Reason: Recheck today's complaints, Continuance of care, Re-evaluation by your physician. Problem is new. Symptoms have improved. pm1
--- NOTE | 2018-08-29 10:40 | RAD REPORT ---
EXAM DESCRIPTION: CT - Thorax Wo Michael - 08/27/2018 11:37 pm CLINICAL HISTORY: 72 years Female shortness of breath COMPARISON: None. TECHNIQUE: Contiguous axial images obtained through the chest without IV contrast. Reformatted image s obtained. This exam was performed according to our department optimization program which includes automated exp osure control, adjustment of the mA and/or kv according to patient size and/or use of iterative recon struction technique. FINDINGS: The visualized upper abdominal organs appear unremarkable. Coronary artery calcifications. The mediastinum appears unremarkable. Mild atherosclerotic calcifications in the thoracic aorta. No consolidating infiltrates or pleural effusions. No pneumothorax. Minimal atelectasis/scarring in the lungs there are a couple of tiny nodular lesions in the lungs measuring up to approximately 0 .25 cm in diameter. Old right T11 rib fracture. Mild degenerative changes in the spine. IMPRESSION: There is minimal atelectasis/scarring in the lungs. No consolidating infiltrates or pleu ral effusions are identified. There are a couple of tiny nodular lesions in the lungs. 12 month follow-up could be obtained if ther e are risk factors for malignancy. Electronically signed by: Dinh Ortiz MD 08/27/2018 10:54 PM CDT Due to temporary technical issues with the PACS/Fluency reporting system, reports are being signed by the in house radiologist as a courtesy to ensure prompt reporting. The interpreting radiologist is f ully responsible for the content of the report.
== END 2018-08-28 00:39 | disposition home or self-care (01) ==
LOC: ER 19:13
DX: J45.901 Unspecified asthma with (acute) exacerbation (principal); E11.9 Type 2 diabetes mellitus without complications; I10 Essential (primary) hypertension; Z88.6 Allergy status to analgesic agent; Z88.0 Allergy status to penicillin
CPT/HCPCS: 96365; 85025; 80048; 36415; 83735; 80076; 71250; 71045; 94640; 82805; 96375; 99285; 96366; J3475; J2930

== ENCOUNTER 2019-04-14 21:14 | Emergency (ER) | payer MEDICARE ==
--- OUTSIDE RECORDS SUMMARY | 2019-04-14 21:18 | XMS REPORT ---
:1945 [facility] Providers Name Role Phone Rodolfo [...] Dosage System Date Date One Touch Ultra [facility] [id number] 1 In Vitro October 08Jan 01, Active check once Test Strips check daily 2017 2018 daily Metformin HCl [facility] 10608513747 1000 MG Orally Jan 13, Active 1 tablet twice a day 2017 with a meal ProAir HFA [facility] 79933831335 108 (90 Base) Active 2 puffs as MCG/ACT needed for Inhalation sob/wheezi every 4-6 hrs ng Esomeprazole [facility] 11792051848 20 mg Orally Jan 13, Active 1 capsule Magnesium Once a day 2017 Esomeprazole [facility] 10939763186 40 MG Orally Active 1 capsule Magnesium Once a day Calcium [facility] 60817003448 500 MG Orally Active 2 tablets Once a day Lisinopril [facility] 95479975872 5 MG Orally Jan 13, Active 1 tablet Once a day 2017 Nesina [facility] 14470332974 25 mg Orally May 06, Active 1 tablet Once a day for 2017 diabetes Fish Oil [facility] 86998935912 1000 MG Orally May 06, May 06, Active 1 capsule Twice a day 2017 2017 (OTC) Ibandronate [facility] 54932851659 150 MG Orally Jan 13Jan Active 1 tablet Sodium Once a month 2017 Januvia [facility] 98854142915 50 MG Orally August Active 1 tablet Once a day 2017 Breo Ellipta [facility] 58237454932 200-25 MCG/INH Active 1 puff Inhalation Once a day Advair Diskus [facility] 17098502593 250-50 MCG/DOSE October 25, Active 1 puff Inhalation 2017 Twice a day Results No Known Results Summary Purpose eClinicalWorks Submission
--- OUTSIDE RECORDS SUMMARY | 2019-04-14 21:18 | XMS REPORT ---
[...] End Status Dosage System Date Date Ibandronate [facility] 90764304787 150 MG Orally Jan 13Jan Active 1 tablet Sodium Once a month 2017 Metformin HCl [facility] 00434316663 1000 MG Orally Jan 13, Active 1 tablet twice a day 2017 with a meal Esomeprazole [facility] 66368810615 20 mg Orally Jan 13, Active 1 capsule Magnesium Once a day 2017 Januvia [facility] 32753659315 50 MG Orally August Active 1 tablet Once a day 2017 Lisinopril [facility] 87516287195 5 MG Orally Jan 13, Active 1 tablet Once a day 2017 Advair Diskus [facility] 96357417502 250-50 MCG/DOSE October 25, Active 1 puff Inhalation 2017 Twice a day Calcium [facility] 83096726643 500 MG Orally Active 2 tablets Once a day Breo Ellipta [facility] 60452228324 200-25 MCG/INH Active 1 puff Inhalation Once a day Esomeprazole [facility] 97369177038 40 MG Orally Active 1 capsule Magnesium Once a day One Touch Ultra [facility] 549717921392 1 In Vitro October 08Jan 01, Active check once Test Strips check daily 2017 2018 daily ProAir HFA [facility] 47210527070 108 (90 Base) Active 2 puffs as MCG/ACT needed for Inhalation sob/wheezi every 4-6 hrs ng Results No Known Results Summary Purpose eClinicalWorks Submission
--- OUTSIDE RECORDS SUMMARY | 2019-04-14 21:18 | XMS REPORT ---
[...] System Date Date One Touch Ultra [facility] 258506414494 1 In Vitro October 08Jan 01, Active check once Test Strips check daily 2017 2018 daily Lisinopril [facility] 78598975562 5 MG Orally Jan 13, Active 1 tablet Once a day 2017 Januvia [facility] 84535201346 50 MG Orally August Active 1 tablet Once a day 2017 Ibandronate [place] 29656985193 150 MG Orally Jan 13Jan Active 1 tablet Sodium Once a month 2017 Calcium [facility] 73216531691 500 MG Orally Active 2 tablets Once a day ProAir HFA [facility] 49010138103 108 (90 Base) Active 2 puffs as MCG/ACT needed for Inhalation sob/wheezi every 4-6 hrs ng Advair Diskus [facility] 80781958837 250-50 MCG/DOSE October 25, Active 1 puff Inhalation 2017 Twice a day Esomeprazole [facility] 41464424075 40 MG Orally Active 1 capsule Magnesium Once a day Breo Ellipta [facility] 65954476925 200-25 MCG/INH Active 1 puff Inhalation Once a day Esomeprazole [facility] 61692453954 20 mg Orally Jan 13, Active 1 capsule Magnesium Once a day 2017 Nesina [facility] 96605553232 25 mg Orally May 06, Active 1 tablet Once a day for 2017 diabetes Metformin HCl [facility] 13284067903 1000 MG Orally Jan 13, Active 1 tablet twice a day 2017 with a meal Results No Known Results Summary Purpose eClinicalWorks Submission
--- OUTSIDE RECORDS SUMMARY | 2019-04-14 21:18 | XMS REPORT ---
[...] Status Dosage System Date Date Calcium NDC 01764505458 500 MG Orally Active 2 tablets Once a day Metformin HCl NDC 06338536355 1000 MG Orally Jan 13, Active 1 tablet twice a day 2017 with a meal Nesina ND 33046440386 25 mg Orally May 06, Active 1 tablet Once a day for 2017 diabetes Blood Glucose ND 0 as directed May 13, Active as directed Monitor Test BS once 2018 (DISPENSE daily BLOOD GLUCOSE MONITOR FORMULARY TO INSURANCE) Elly [facility] 25217636894 50 MG Orally August Active 1 tablet Once a day 2017 One Touch Ultra ND 250481621212 1 In Vitro October 08, Jan 01, Active check once Test Strips check daily 2017 2018 daily Lisinopril [facility] 68607622010 5 MG Orally Jan 13, Active 1 tablet Once a day 2017 Esomeprazole [facility] 12837169197 20 mg Orally Jan 13, Active 1 capsule Magnesium Once a day 2017 Ibandronate [facility] 28342008193 150 MG Orally Jan 13, Jan Active 1 tablet Sodium Once a month 2017 ProAir HFA [facility] 09781772084 108 (90 Base) Active 2 puffs as MCG/ACT needed for Inhalation sob/wheezin every 4-6 hrs g Esomeprazole [facility] 90406495905 40 MG Orally Active 1 capsule Magnesium Once a day Breo Ellipta [facility] 40110422129 200-25 MCG/INH Active 1 puff Inhalation Once a day Advair Diskus [facility] 60637539545 250-50 MCG/DOSE October 25, Active 1 puff Inhalation 2017 Twice a day Results No Known Results Summary Purpose eClinicalWorks Submission
--- OUTSIDE RECORDS SUMMARY | 2019-04-14 21:18 | XMS REPORT ---
:1945 [facility] [address] [place] [address] [address] [place] [address] Care Team Providers Name Role Phone Unavailable Unavailable Unavailable Problems This patient has no known problems. Allergies, Adverse Reactions, Alerts This patient has no known allergies or adverse reactions. Medications This patient has no known medications.
--- OUTSIDE RECORDS SUMMARY | 2019-04-14 21:19 | XMS REPORT ---
:1945 [facility] Team Providers Name Role Phone Daniella [...] End Status Dosage System Date Date Ibandronate [facility][NOTE 3] 41938535593 150 MG Orally Jan 13Jan Active 1 tablet Sodium Once a month 2017 Metformin HCl [facility][NOTE 3] 21847439113 1000 MG Orally Jan 13, Active 1 tablet twice a day 2017 with a meal Lisinopril [facility][NOTE 3] 21315970003 5 MG Orally Jan 13, Active 1 tablet Once a day 2017 Esomeprazole [facility][NOTE 3] 35054093558 40 MG Orally Active 1 capsule Magnesium Once a day Results No Known Results Summary Purpose eClinicalWorks Submission
--- OUTSIDE RECORDS SUMMARY | 2019-04-14 21:19 | XMS REPORT ---
:1945 Author Organization eClinicalWorks Care Team Providers Name Role Phone Daniella Torri Provider Role Unavailable Allergies, Adverse Reactions, Alerts Substance Reaction Event Type penicillin rash Drug Allergy aspirin Info Not Available Drug Allergy Problems Problem Type Condition Code Onset Dates Condition Status Assessment Hyperlipidemia, unspecified E78.5 Active hyperlipidemia type Assessment Osteoporosis, unspecified M81.0 Active osteoporosis type, unspecified pathological fracture presence Assessment Hypertension, unspecified type I10 Active Assessment Uncontrolled type 2 diabetes E11.65 Active mellitus without complication, without long-term current use of insulin Assessment Follow-up exam Z09 Active Assessment [address] scan, chest R93.89 Active Assessment Asthma, unspecified asthma J45.909 Active severity, unspecified whether complicated, unspecified whether persistent Problem Hyperlipidemia, unspecified E78.5 Active hyperlipidemia type Problem Asthma, unspecified asthma J45.909 Active severity, unspecified whether complicated, unspecified whether persistent Problem Pain in right shoulder M25.511 Active Problem Pain of left leg M79.605 Active Problem Hypertension, unspecified type I10 Active Problem Pain of left arm M79.602 Active Problem Other chronic pain G89.29 Active Problem Sciatica of left side M54.32 Active Problem Ingrown toenail L60.[address] scan, chest R93.89 Active Problem Wheezing R06.2 Active Problem Uncontrolled type 2 diabetes E11.65 Active mellitus without complication, without long-term current use of insulin Problem Onychomycosis B35.1 Active Problem Osteoporosis, unspecified M81.0 Active osteoporosis type, unspecified pathological fracture presence Problem Bone spur of right foot M77.51 Active Problem Infection of right foot L08.9 Active Problem Rash and nonspecific skin eruption R21 Active Problem Right foot pain M79.671 Active Problem Follow-up exam Z09 Active Problem Low back pain, unspecified back M54.5 Active pain laterality, unspecified chronicity, with sciatica presence unspecified Problem SOB (shortness of breath) R06.02 Active Problem Seasonal allergies J30.2 Active Problem Sciatica, right side M54.31 Active Problem Pain in left shoulder M25.512 Active Problem Pain in right leg M79.604 Active Problem Pain in right arm M79.601 Active Medications Medication Code Code Instructions Start End Status Dosage System Date Date Glimepiride [facility] 29473304671 4 MG Orally Active 1 tablet Once a day with breakfast or the first main meal of the day Esomeprazole ND 85861175886 40 MG Orally Active 1 capsule Magnesium Once a day One Touch Ultra NDC 0 test strips N/S Jun 22September Active one 2 Test Strips once a day 2018 Blood Glucose NDC 0 as directed May 13, Active as directed Monitor Test BS once 2018 (DISPENSE daily BLOOD GLUCOSE MONITOR FORMULARY TO INSURANCE) Advair Diskus [facility] 14484509756 250-50 MCG/DOSE October 25, Active 1 puff Inhalation 2017 Twice a day Januvia ND 64208242448 50 MG Orally August Active 1 tablet Once a day 2017 Lisinopril ND 55639228096 5 MG Orally Jan 13, Active 1 tablet Once a day 2017 Nesina ND 41820758115 25 mg Orally May 06, Active 1 tablet Once a day for 2018 diabetes One Touch Ultra [facility] 57911550132 N/S n/s n/s Jun 22, Active as directed Glucose Monitor 2018 Metformin HCl ND 46011743426 1000 MG Orally Jan 13, Active 1 tablet twice a day 2017 with a meal Breo Ellipta [facility] 39028835193 200-25 MCG/INH Active 1 puff Inhalation Once a day Calcium ND 07615545883 500 MG Orally Active 2 tablets Once a day One Touch Ultra [facility] 136960654572 1 In Vitro October 08Dec Active check once Test Strips check daily 2017 25, daily 2018 Ipratropium-Alb [facility] [address]-94 20-100 MCG/ACT September 22, Active 1 puff as uterol Inhalation Four 2019 needed for times a day SOB/wheezin g Advair Diskus ND 46507516190 250-50 MCG/DOSE September 22, Active 1 puff Inhalation 2018 Twice a day Esomeprazole ND 86855263704 20 mg Orally Jan 13, Active 1 capsule Magnesium Once a day 2017 ProAir HFA [facility] 32790734374 108 (90 Base) Active 2 puffs as MCG/ACT needed for Inhalation sob/wheezin every 4-6 hrs g Ibandronate [facility] 77385226848 150 MG Orally Jan 13Jan Active 1 tablet Sodium Once a month 2017 Results No Known Results Summary Purpose eClinicalWorks Submission
--- OUTSIDE RECORDS SUMMARY | 2019-04-14 21:20 | XMS REPORT ---
:1945 [facility] Team Providers Name Role Phone [...] Start End Status Dosage System Date Date Blood Glucose NDC 0 as directed May 13, Active as directed Monitor Test BS once 2018 (DISPENSE daily BLOOD GLUCOSE MONITOR FORMULARY TO INSURANCE) Lisinopril NDC 26449392509 5 MG Orally Jan 13, Active 1 tablet Once a day 2017 Calcium ND 87426639720 500 MG Orally Active 2 tablets Once a day Nesina ND 04120470668 25 mg Orally May 06, Active 1 tablet Once a day for 2017 diabetes Advair Diskus ND 94718764158 250-50 MCG/DOSE September 22, Active 1 puff Inhalation 2018 Twice a day Esomeprazole ND 54950121534 20 mg Orally Jan 13, Active 1 capsule Magnesium Once a day 2017 Metformin HCl NDC 46263527476 1000 MG Orally Jan 13, Active 1 tablet twice a day 2017 with a meal Advair Diskus ND 13985590865 250-50 MCG/DOSE October 25, Active 1 puff Inhalation 2017 Twice a day One Touch Ultra [facility] 402916564351 1 In Vitro October 08Dec Active check once Test Strips check daily 2017, daily 2018 Januvia [facility] 22854225849 50 MG Orally August Active 1 tablet Once a day 2017 Esomeprazole ND 72127051941 40 MG Orally Active 1 capsule Magnesium Once a day Ipratropium-Alb [facility] [address]-99 20-100 MCG/ACT September 22, Active 1 puff as uterol Inhalation Four 2018 needed for times a day SOB/wheezin g Glimepiride ND 40073575515 4 MG Orally Active 1 tablet Once a day with breakfast or the first main meal of the day One Touch Ultra ND 0 test strips N/S Jun 22September Active one 2 Test Strips once a day 2018 ProAir HFA [facility] 03648773979 108 (90 Base) Active 2 puffs as MCG/ACT needed for Inhalation sob/wheezin every 4-6 hrs g Ibandronate [facility] 93602765612 150 MG Orally Jan 13Jan Active 1 tablet Sodium Once a month 2017 Breo Ellipta ND 62720228215 200-25 MCG/INH Active 1 puff Inhalation Once a day One Touch Ultra [facility] 50185968990 N/S n/s n/s Jun 22, Active as directed Glucose Monitor 2018 Results No Known Results Summary Purpose eClinicalWorks Submission
--- OUTSIDE RECORDS SUMMARY | 2019-04-14 21:20 | XMS REPORT ---
:1945 Author Organization eClinicalWorks Care Team Providers Name Role Phone Torri Brewer Provider Role Unavailable Allergies No Known Allergies Problems Problem Type Condition Code Onset Dates Condition Status Assessment Encounter for screening mammogram Z12.31 Active for breast cancer Problem Asthma, unspecified asthma J45.909 Active severity, unspecified whether complicated, unspecified whether persistent Problem Hypertension, unspecified type I10 Active Problem Osteoporosis, unspecified M81.0 Active osteoporosis type, unspecified pathological fracture presence Problem Uncontrolled type 2 diabetes E11.65 Active mellitus without complication, without long-term current use of insulin Problem SOB (shortness of breath) R06.02 Active Problem Hyperlipidemia, unspecified E78.5 Active hyperlipidemia type Problem Wheezing R06.2 Active Problem Infection of right foot L08.9 Active Problem Bone spur of right foot M77.51 Active Problem Seasonal allergies J30.2 Active Problem Right foot pain M79.[address] scan, chest R93.89 Active Problem Rash and nonspecific skin eruption R21 Active Problem Pain of right heel M79.671 Active Problem Status post fall Z91.81 Active Problem Pain in right leg M79.604 Active Problem Pain of left leg M79.605 Active Problem Acute pain of left shoulder M25.512 Active Problem Other chronic pain G89.29 Active Problem Onychomycosis B35.1 Active Problem Ingrown toenail L60.0 Active Problem Acute right-sided low back pain M54.5 Active without sciatica Problem Depression screening Z13.31 Active Problem Pain in left shoulder M25.512 Active Problem Pain in right shoulder M25.511 Active Problem Pain in right arm M79.601 Active Problem Sciatica, right side M54.31 Active Problem Sciatica of left side M54.32 Active Problem Follow-up exam Z09 Active Problem Low back pain, unspecified back M54.5 Active pain laterality, unspecified chronicity, with sciatica presence unspecified Problem Pain of left arm M79.602 Active Medications No Known Medications Results No Known Results Summary Purpose eClinicalWorks Submission
--- OUTSIDE RECORDS SUMMARY | 2019-04-14 21:20 | XMS REPORT ---
:1945 Author Organization eClinicalWorks Care Team Providers Name Role Phone Torri Brewer Provider Role Unavailable Allergies No Known Allergies Problems Problem Type Condition Code Onset Dates Condition Status Problem Asthma, unspecified asthma J45.909 Active severity, [...]
--- OUTSIDE RECORDS SUMMARY | 2019-04-14 21:20 | XMS REPORT ---
:1945 Author Organization eClinicalWorks Care Team Providers Name Role Phone Daniella Torri Provider Role Unavailable Allergies, Adverse Reactions, Alerts Substance Reaction Event Type penicillin rash Drug Allergy aspirin Info Not Available Drug Allergy Problems Problem Type Condition Code Onset Dates Condition Status Assessment Hypertension, unspecified type I10 Active Assessment Depression screening Z13.31 Active Problem Asthma, unspecified asthma J45.909 Active [...] Pain of left leg M79.[address] scan, chest R93.89 Active Problem Acute pain of left shoulder M25.512 Active Problem Other chronic pain G89.29 Active Assessment Osteoporosis, unspecified M81.0 Active osteoporosis type, unspecified pathological fracture presence Problem Onychomycosis B35.1 Active Assessment Pain of right heel M79.671 Active Problem Ingrown toenail L60.0 Active Problem Acute right-sided low back pain M54.5 Active without sciatica Problem Depression screening Z13.31 Active Assessment Acute pain of left shoulder M25.512 Active Problem Pain in left shoulder M25.512 Active Assessment Acute right-sided low back pain M54.5 Active without sciatica Problem Pain in right shoulder M25.511 Active Assessment Uncontrolled type 2 diabetes E11.65 Active mellitus without complication, without long-term current use of insulin Problem Pain in right arm M79.601 Active Assessment Status post fall Z91.81 Active Problem Sciatica, right side M54.31 Active Assessment Asthma, unspecified asthma J45.909 Active severity, unspecified whether complicated, unspecified whether persistent Problem Sciatica of left side M54.32 Active Assessment Hyperlipidemia, unspecified E78.5 Active hyperlipidemia type Problem Follow-up exam Z09 Active Problem Low back pain, unspecified back M54.5 Active pain laterality, unspecified chronicity, with sciatica presence unspecified Problem Pain of left arm M79.602 Active Medications Medication Code Code Instructions Start End Status Dosage System Date Date Naproxen [facility] 36057702581 500 MG Orally Dec 23Jan Active 1 tablet as every 12 hrs 2018 15, needed for 2018 pain; take with food or milk as needed Glimepiride ND 16428966509 4 MG Orally Active 1 tablet Once a day with breakfast or the first main meal of the day Lisinopril ND 75556132980 5 MG Orally Active 1 tablet Once a day Blood Glucose ND 0 as directed May 13, Active as directed Monitor Test BS once 2018 (DISPENSE daily BLOOD GLUCOSE MONITOR FORMULARY TO INSURANCE) One Touch Ultra [facility] 776214896733 1 In Vitro October 08Dec Active check once Test Strips check daily 2017, 2018 One Touch Ultra ND 0 test strips N/S Jun 22September Active one 2 Test Strips once a day 2018 Metformin HCl ND 55142296740 1000 MG Orally Active 1 tablet Twice a day with a meal Advair Diskus ND 44821052928 250-50 MCG/DOSE October 25, Active 1 puff Inhalation 2017 Twice a day Breo Ellipta ND 03315180494 200-25 MCG/INH Active 1 puff Inhalation Once a day ProAir HFA [facility] 31338300179 108 (90 Base) Active 2 puffs as MCG/ACT needed for Inhalation sob/wheezin every 4-6 hrs g Esomeprazole ND 67518927201 20 mg Orally Jan 13, Active 1 capsule Magnesium Once a day 2017 Nesina ND 04776957548 25 mg Orally May 06, Active 1 tablet Once a day for 2018 diabetes Januvia ND 82817681927 50 MG Orally August Active 1 tablet Once a day 2017 Ipratropium-Alb [facility] [address]-68 20-100 MCG/ACT Active 1 puff as uterol Inhalation Four needed for times a day sob/wheezin g Advair Diskus ND 84730234144 250-50 MCG/DOSE Active 1 puff Inhalation Twice a day One Touch Ultra [facility] 46564744510 N/S n/s n/s Jun 22, Active as directed Glucose Monitor 2018 Calcium [facility] 03697753644 500 MG Orally Active 2 tablets Once a day Ibandronate ND 39593386803 150 MG Orally September Active 1 tablet Sodium Once a month 2019 Esomeprazole [facility] 61224132639 40 MG Orally Active 1 capsule Magnesium Once a day Naproxen ND 0 Orally as Active 1 tablet directed with food or milk Results No Known Results Summary Purpose eClinicalWorks Submission
--- OUTSIDE RECORDS SUMMARY | 2019-04-14 21:21 | XMS REPORT ---
:1945 Author Organization eClinicalWorks Care Team Providers Name Role Phone Torri Brewer Provider Role Unavailable Allergies, Adverse Reactions, Alerts Substance Reaction Event Type penicillin rash Drug Allergy aspirin Info Not Available Drug Allergy Problems Problem Type Condition Code Onset Dates Condition Status Assessment Hypertension, unspecified type I10 Active Problem Hypertension, unspecified type I10 Active Problem Asthma, unspecified asthma J45.909 Active severity, unspecified whether complicated, unspecified whether persistent Problem Osteoporosis, unspecified M81.0 Active osteoporosis type, unspecified pathological fracture presence Problem Uncontrolled type 2 diabetes E11.65 Active mellitus without complication, without long-term current use of insulin Problem SOB (shortness of breath) R06.02 Active Problem Hyperlipidemia, unspecified E78.5 Active hyperlipidemia type Problem Wheezing R06.2 Active Problem Seasonal allergies J30.2 Active Problem Bone spur of right foot M77.51 Active Problem Right foot pain M79.671 Active Problem Other chronic pain G89.29 Active Problem Rash and nonspecific skin eruption R21 Active Problem Ingrown toenail L60.[address] scan, chest R93.89 Active Problem Acute pain of left shoulder M25.512 Active Problem Pain of right heel M79.671 Active Problem Pain in right arm M79.601 Active Problem Pain in right leg M79.604 Active Assessment Polyarthralgia M25.50 Active Problem Polyarthralgia M25.50 Active Problem Pain of left leg M79.605 Active Problem Depression screening Z13.31 Active Problem Onychomycosis B35.1 Active Problem Status post fall Z91.81 Active Problem Acute right-sided low back pain M54.5 Active without sciatica Assessment Uncontrolled type 2 diabetes E11.65 Active mellitus without complication, without long-term current use of insulin Problem Pain in right shoulder M25.511 Active Assessment Acute right-sided low back pain M54.5 Active without sciatica Problem Low back pain, unspecified back M54.5 Active pain laterality, unspecified chronicity, with sciatica presence unspecified Assessment Asthma, unspecified asthma J45.909 Active severity, unspecified whether complicated, unspecified whether persistent Problem Sciatica, right side M54.31 Active Assessment Hyperlipidemia, unspecified E78.5 Active hyperlipidemia type Problem Pain in left shoulder M25.512 Active Assessment Osteoporosis, unspecified M81.0 Active osteoporosis type, unspecified pathological fracture presence Problem Follow-up exam Z09 Active Assessment [address] scan, chest R93.89 Active Problem Infection of right foot L08.9 Active Problem Pain of left arm M79.602 Active Problem Sciatica of left side M54.32 Active Medications Medication Code Code Instructions Start End Status Dosage System Date Date Advair Diskus [facility] 11023490902 250-50 MCG/DOSE Active 1 puff Inhalation Twice a day Ipratropium-Alb [facility] [address]-78 20-100 MCG/ACT Active 1 puff as uterol Inhalation Four needed for times a day sob/wheezin g Glimepiride [facility] 58769988056 4 MG Orally Active 1 tablet Once a day with breakfast or the first main meal of the day Lancets [facility] 26217727328 - as directed Mar 23, Active as directed Test BS once 2018 (dispense daily lancets of record) Advair Diskus [facility] 64694196483 250-50 MCG/DOSE October 25, Active 1 puff Inhalation 2018 Twice a day Naproxen ND 0 Orally as Active 1 tablet directed with food or milk Ibandronate [facility] 84678959007 150 MG Orally Active 1 tablet Sodium Once a month Calcium [facility] 39347414023 500 MG Orally Active 2 tablets Once a day Lisinopril [facility] 16931065009 10 MG Orally Active 1 tablet Once a day Nesina [facility] 70323300177 25 mg Orally May 06, Active 1 tablet Once a day for 2017 diabetes Januvia ND 17162436741 50 MG Orally August Active 1 tablet Once a day 2017 One Touch Ultra NDC 0 test strips N/S Jun 22September Active one 2 Test Strips once a day 2018 One Touch Ultra [facility] 88598805682 N/S n/s n/s Jun 22, Active as directed Glucose Monitor 2018 Esomeprazole ND 38298423578 40 MG Orally Active 1 capsule Magnesium Once a day Esomeprazole [facility] 99080919656 20 mg Orally Jan 13, Active 1 capsule Magnesium Once a day 2017 Breo Ellipta ND 72907314644 200-25 MCG/INH Active 1 puff Inhalation Once a day ProAir HFA [facility] 01832037204 108 (90 Base) Active 2 puffs as MCG/ACT needed for Inhalation sob/wheezin every 4-6 hrs g Blood Glucose NDC 0 as directed Mar 23, Active as directed Test Strip Test BS once 2019 (DISPENSE daily BLOOD GLUCOSE TEST STRIPS OF RECORD) Metformin HCl [facility] 81534954178 1000 MG Orally Active 1 tablet Twice a day with a meal Blood Glucose NDC 0 as directed May 13, Active as directed Monitor Test BS once 2019 (DISPENSE daily BLOOD GLUCOSE MONITOR FORMULARY TO INSURANCE) Results No Known Results Summary Purpose eClinicalWorks Submission
[2019-04-14 23:48] LABS: Urine Bacteria <20 /HPF (<20); Urine Culture Reflex Order NOT NEEDED; Urine RBC NONE SEEN /HPF (NONE SEEN)
[2019-04-14 23:50] LABS: Urine Blood NEGATIVE (NEG); Urine Glucose NEGATIVE (NEG); Urine Protein NEGATIVE (NEG); Urine Specific Gravity 1.025 (1.005-1.030); Urine pH 5.5 (5.0-7.0)
[2019-04-15] MEDS ORDERED: KETOROLAC 30 MG/ML INJ ONE (00:13)
[2019-04-15] MEDS ORDERED: DIAZEPAM 2 MG TABLET ONE (00:13)
--- NOTE | 2019-04-15 01:22 | ER ---
Nurse's Notes [facility] Name: Elmira Jones Age: 73 yrs Sex: Female : 1945 Arrival Date: 04/14/2019 Time: 21:18 Bed 17 Private MD: Diagnosis: Hypoglycemia, unspecified;Radiculopathy, lumbar region Presentation: 04/14 21:24 Presenting complaint: Patient states: "I started feeling dizzy around 1900 and pain in jd3 my back and into my shoulder and right arm.". Transition of care: patient was not received from another setting of care. Onset of symptoms was April 14, 2019. Risk Assessment: Do you want to hurt yourself or someone else? Patient reports no desire to harm self or others. Initial Sepsis Screen: Does the patient meet any 2 criteria? No. Patient's initial sepsis screen is negative. Does the patient have a suspected source of infection? No. Patient's initial sepsis screen is negative. Care prior to arrival: None. 21:24 Method Of Arrival: Wheelchair jd3 21:24 Acuity: CM 3 jd3 Triage Assessment: 22:36 General: Appears in no apparent distress. comfortable, Behavior is calm, cooperative, sr6 appropriate for age. Pain: Complains of pain in back, right shoulder Pain does not radiate. Pain currently is 5 out of 10 on a pain scale. Pain began 2 hours ago. Is continuous. EENT: No deficits noted. Neuro: Level of Consciousness is awake, alert, obeys commands, Oriented to person, place, time, situation, Appropriate for age Reports dizziness, since 2 hours ago. Cardiovascular: Heart tones S1 S2 present Capillary refill < 3 seconds Patient's skin is warm and dry. Respiratory: Airway is patent Respiratory effort is even, unlabored, Respiratory pattern is regular, symmetrical, Breath sounds are clear bilaterally. GI: Abdomen is flat, non-distended, Bowel sounds present X 4 quads. Abd is soft and non tender X 4 quads. : No deficits noted. No signs and/or symptoms were reported regarding the genitourinary system. Derm: Skin is intact, is healthy with good turgor, Skin is pink, warm \\T\\ dry. Musculoskeletal: Circulation, motion, and sensation intact. Capillary refill < 3 seconds, Range of motion: intact in all extremities. Historical: - Allergies: 21:28 PENICILLINS; jd3 21:28 Aspirin; jd3 21:28 Adhesives; jd3 - Home Meds: 21:28 Glipizide Oral [Active]; Lisinopril Oral [Active]; jd3 - PMHx: 21:28 Diabetes - NIDDM; Asthma; Hypertension; jd3 - PSHx: 21:28 breast; jd3 - Immunization history:: Adult Immunizations up to date. - Social history:: Smoking status: Patient/guardian denies using tobacco. - Ebola Screening: : Patient negative for fever greater than or equal to 101.5 degrees Fahrenheit, and additional compatible Ebola Virus Disease symptoms. Screenin:35 Abuse screen: Denies threats or abuse. Nutritional screening: No deficits noted. sr6 Tuberculosis screening: No symptoms or risk factors identified. Fall Risk None identified. Assessment: 22:43 Reassessment: see triage notes. sr6 23:50 Reassessment: blood sugar rechecked = 132mg/dl. sr6 04/15 00:30 Reassessment: Patient appears in no apparent distress at this time. Patient and/or family updated on plan of care and expected duration. Pain level reassessed. Patient is alert, oriented x 3, equal unlabored respirations, skin warm/dry/pink. 00:41 Reassessment: blood sugar rechecked = 126mg/dl. sr6 01:30 Reassessment: Patient appears in no apparent distress at this time. No changes from previously documented assessment. Patient and/or family updated on plan of care and expected duration. Pain level reassessed. Patient is alert, oriented x 3, equal unlabored respirations, skin warm/dry/pink. Vital Signs: 04/14 21:28 BP 117 / 65; Pulse 87; Resp 17 S; Temp 97.7(TE); Pulse Ox 100% on R/A; Weight 70.76 kg jd3 (R); Height 5 ft. 4 in. (162.56 cm) (R); Pain 7/10; 23:00 BP 124 / 78; Pulse 85; Resp 20; Temp 98; Pulse Ox 99% ; Pain 8/10; sr6 1207 00:09 BP 120 / 78; Pulse 88; Resp 20; Temp 98.2; Pulse Ox 100% ; Pain 6/10; sr6 01:30 BP 138 / 77; Pulse 63; Resp 16; Pulse Ox 98% on R/A; wh 04/14 21:28 Body Mass Index 26.78 (70.76 kg, 162.56 cm) jd3 ED Course: 04/14 21:18 Patient arrived in ED. cl3 21:26 Triage completed. jd3 21:29 Arm band placed on. jd3 21:31 Laverne Szymanski is Primary Nurse. wh 22:00 Patient has correct armband on for positive identification. Bed in low position. Call light in reach. Side rails up X 1. Pulse ox on. NIBP on. 22:30 Priyanka Sarabia FNP-C is PHCP. snw 22:30 Jordy Rachel MD is Attending Physician. snw 23:14 Lumbar Spine (3 Views) XRAY In Process Unspecified. EDMS 23:28 CT Head C Spine In Process Unspecified. EDMS 12 01:31 No provider procedures requiring assistance completed. Patient did not have IV access during this emergency room visit. Administered Medications: 00:16 Drug: Valium 2 mg Route: PO; sr6 00:42 Follow up: Response: No adverse reaction; Anxiety decreased sr6 00:17 Drug: TORadol 30 mg Route: IM; Site: left gluteus; sr6 00:42 Follow up: Response: No adverse reaction; Pain is decreased sr6 Outcome: 01:21 Discharge ordered by MD. snw 01:32 Discharged to home ambulatory, with family. 01:32 Condition: stable 01:32 Discharge instructions given to patient, family, Instructed on discharge instructions, follow up and referral plans. medication usage, POC Demonstrated understanding of instructions, follow-up care, medications, POC Prescriptions given X 1. 01:32 Patient left the ED. Signatures: Dispatcher [employer] EDMS Priyanka Sarabia FNP-C SCHOOL CUSTODIAN-Csnw Laverne Szymanski Kevin Wilson RN RN jd3 Jackie Merrill sr6 Anisa Roach cl3 Corrections: (The following items were deleted from the chart) 04/14 22:43 22:36 General: Appears in no apparent distress. Behavior is sr6 sr6 22:43 22:36 Pain: Complains of pain in back, right shoulder Pain currently is 5 out of 10 on sr6 a pain scale. sr6 22:43 22:36 EENT: No deficits noted. sr6 sr6 22:43 22:36 Neuro: Level of Consciousness is awake, alert, obeys commands, Oriented to sr6 person, sr6 :43 22:36 Cardiovascular: Capillary refill < 3 seconds sr6 sr6 22:43 22:36 Respiratory: Airway is patent sr6 sr6 22:43 22:36 GI: No deficits noted. Abdomen is flat, round sr6 sr6 :43 22:36 : No signs and/or symptoms were reported regarding the genitourinary system. sr6sr6 22:43 22:36 Derm: No signs and/or symptoms reported regarding the dermatologic system. sr6 sr6 :43 22:36 Musculoskeletal: No deficits noted. sr6 sr6
--- NOTE | 2019-04-15 01:22 | EDPHYS ---
Physician Documentation [facility] Name: Elmira Jones Age: 73 yrs Sex: Female : 1945 Arrival Date: 04/14/2019 Time: 21:18 Bed 17 Private MD: ELLE Physician Jordy Rachel HPI: 04/14 23:15 This 73 yrs old Female presents to ER via Wheelchair with complaints of snw Dizziness, Blurred Vision. 23:15 This 73 yrs old Female presents to ER via Wheelchair with complaints of snw Dizziness, pain in left hip, recent near syncopal episodes. 23:16 Pt with bodyaches, intermittent cold feeling, multiple near syncopal episodes over the snw past several weeks, state + back pain with left hip pain. Onset: The symptoms/episode began/occurred gradually, 1 week(s) ago, and became persistent. Severity of symptoms: At their worst the symptoms were moderate severe. The patient has experienced similar episodes in the past. The patient has been recently seen by a physician: the patient's primary care provider, Dr. Lara. Historical: - Allergies: 21:28 PENICILLINS; jd3 21:28 Aspirin; jd3 21:28 Adhesives; jd3 - Home Meds: 21:28 Glipizide Oral [Active]; Lisinopril Oral [Active]; jd3 - PMHx: 21:28 Diabetes - NIDDM; Asthma; Hypertension; jd3 - PSHx: 21:28 breast; jd3 - Immunization history:: Adult Immunizations up to date. - Social history:: Smoking status: Patient/guardian denies using tobacco. - Ebola Screening: : Patient negative for fever greater than or equal to 101.5 degrees Fahrenheit, and additional compatible Ebola Virus Disease symptoms. ROS: 23:13 Constitutional: Negative for fever, chills, and weight loss, Eyes: Negative for injury, snw pain, redness, and discharge, ENT: Negative for injury, pain, and discharge, Neck: Negative for injury, pain, and swelling, Cardiovascular: Negative for chest pain, palpitations, and edema, Respiratory: Negative for shortness of breath, cough, wheezing, and pleuritic chest pain, Abdomen/GI: Negative for abdominal pain, nausea, vomiting, diarrhea, and constipation, Back: Negative for injury, + pain : Negative for injury, bleeding, discharge, and swelling, MS/Extremity: Negative for injury and deformity, Skin: Negative for injury, rash, and discoloration. 23:13 Neuro: Positive for confusion multiple times and near syncopal events twice over the past three weeks. Has seen Dr. Lara and had x-rays of left hip in [place] today.. Exam: 23:11 Constitutional: This is a well developed, well nourished patient who is awake, alert, snw and in no acute distress. Head/Face: Normocephalic, atraumatic. Eyes: Pupils equal round and reactive to light, extra-ocular motions intact. Lids and lashes normal. Conjunctiva and sclera are non-icteric and not injected. Cornea within normal limits. Periorbital areas with no swelling, redness, or edema. ENT: Nares patent. No nasal discharge, no septal abnormalities noted. Tympanic membranes are normal and external auditory canals are clear. Oropharynx with no redness, swelling, or masses, exudates, or evidence of obstruction, uvula midline. Mucous membranes moist. Neck: Trachea midline, no thyromegaly or masses palpated, and no cervical lymphadenopathy. Supple, full range of motion without nuchal rigidity, or vertebral point tenderness. No Meningismus. Chest/axilla: Normal chest wall appearance and motion. Nontender with no deformity. No lesions are appreciated. Cardiovascular: Regular rate and rhythm with a normal S1 and S2. No gallops, murmurs, or rubs. Normal PMI, no JVD. No pulse deficits. Respiratory: Lungs have equal breath sounds bilaterally, clear to auscultation and percussion. No rales, rhonchi or wheezes noted. No increased work of breathing, no retractions or nasal flaring. Abdomen/GI: Soft, non-tender, with normal bowel sounds. No distension or tympany. No guarding or rebound. No evidence of tenderness throughout. Back: No spinal tenderness. No costovertebral tenderness. Full range of motion. Skin: Warm, dry with normal turgor. Normal color with no rashes, no lesions, and no evidence of cellulitis. MS/ Extremity: Pulses equal, no cyanosis. Neurovascular intact. Full, normal range of motion. Neuro: Awake and alert, GCS 15, oriented to person, place, time, and situation. Cranial nerves II-XII grossly intact. Motor strength 5/5 in all extremities. Sensory grossly intact. Cerebellar exam normal. Normal gait. Pt does not answer questions asked, Redirected several times. Pt and family give hx of confusion and near syncope multiple times lately Psych: Awake, alert, with orientation to person, place and time. Behavior, mood, and affect are within normal limits. Vital Signs: 21:28 BP 117 / 65; Pulse 87; Resp 17 S; Temp 97.7(TE); Pulse Ox 100% on R/A; Weight 70.76 kg jd3 (R); Height 5 ft. 4 in. (162.56 cm) (R); Pain 7/10; 23:00 BP 124 / 78; Pulse 85; Resp 20; Temp 98; Pulse Ox 99% ; Pain 8/10; sr6 04/15 00:09 BP 120 / 78; Pulse 88; Resp 20; Temp 98.2; Pulse Ox 100% ; Pain 6/10; sr6 01:30 BP 138 / 77; Pulse 63; Resp 16; Pulse Ox 98% on R/A; wh 04/14 21:28 Body Mass Index 26.78 (70.76 kg, 162.56 cm) jd3 MDM: 04/14 22:41 Patient medically screened. snw 04/15 01:21 Data reviewed: vital signs, nurses notes. Data interpreted: Pulse oximetry: on room air snw is 100 %. Interpretation: normal. Counseling: I had a detailed discussion with the patient and/or guardian regarding: the historical points, exam findings, and any diagnostic results supporting the discharge/admit diagnosis, lab results, radiology results, the need for outpatient follow up, to return to the emergency department if symptoms worsen or persist or if there are any questions or concerns that arise at home. Response to treatment: the patient's symptoms have markedly improved after treatment. Special discussion: Based on the history and exam findings, there is no indication for further emergent testing or inpatient evaluation. I discussed with the patient/guardian the need to see the primary care provider for further evaluation of the symptoms. 04/14 22:30 Order name: Urine Culture snw 04/14 22:30 Order name: Urine Microscopic Only; Complete Time: 00:05 snw 04/15 00:55 Interpretation: Abnormal: UBACT <20. snw 04/14 22:41 Order name: Flu; Complete Time: 23:23 snw 04/14 23:00 Order name: Glucose, Ancillary Testing; Complete Time: 23:00 EDMS 04/14 23:43 Order name: Urine Dipstick--Ancillary (enter results); Complete Time: 00:05 ar5 04/14 23:55 Order name: Glucose, Ancillary Testing; Complete Time: 00:05 EDMS 04/14 22:30 Order name: FSBS; Complete Time: 22:52 snw 04/14 22:30 Order name: Urine Dipstick-Ancillary (obtain specimen); Complete Time: 23:34 snw 04/14 22:40 Order name: CT Head C Spine snw 04/14 22:41 Order name: Lumbar Spine (3 Views) XRAY snw 04/14 23:02 Order name: PO challenge; Complete Time: 23:26 snw 04/15 00:53 Order name: Glucose, Ancillary Testing; Complete Time: 00:53 EDMS 04/15 00:34 Order name: FSBS; Complete Time: 00:46 snw Administered Medications: 00:16 Drug: Valium 2 mg Route: PO; sr6 00:42 Follow up: Response: No adverse reaction; Anxiety decreased sr6 00:17 Drug: TORadol 30 mg Route: IM; Site: left gluteus; sr6 00:42 Follow up: Response: No adverse reaction; Pain is decreased sr6 Disposition: 04/15/19 01:21 Discharged to Home. Impression: Hypoglycemia, unspecified, Radiculopathy, lumbar region. - Condition is Stable. - Discharge Instructions: Back Pain, Adult, Hypoglycemia, Lumbosacral Radiculopathy, Blood Glucose Monitoring, Adult, Heat Therapy, Radicular Pain. - Prescriptions for orphenadrine citrate 100 mg Oral Tablet Sustained Release - take 1 tablet by ORAL route 2 times per day As needed; 20 tablet. - Work release form, Medication Reconciliation Form, Thank You Letter, Antibiotic Education, Prescription Opioid Use form. - Follow up: Private Physician; When: 2 - 3 days; Reason: Recheck today's complaints, Continuance of care, Re-evaluation by your physician. Follow up: Emergency Department; When: As needed; Reason: Worsening of condition. - Notes: Do not take Metformin x 48 hours. Addendum: 04/17/2019 09:22 Co-signature as Attending Physician, Jordy Rachel MD I agree with the assessment and c harrsi plan of care. Signatures: Dispatcher [employer] EDJordy Gore MD MD cha Therrien, Shelly, DESIGN CONSULTANT-C DESIGN CONSULTANT-Csnw Laverne Szymanski Steve, Kevin, RN RN jJackie Condon sr6 Corrections: (The following items were deleted from the chart) 04/15 01:32 01:21 04/15/2019 01:21 Discharged to Home. Impression: Hypoglycemia, unspecified; wh Radiculopathy, lumbar region. Condition is Stable. Forms are Medication Reconciliation Form, Thank You Letter, Antibiotic Education, Prescription Opioid Use. Follow up: Private Physician; When: 2 - 3 days; Reason: Recheck today's complaints, Continuance of care, Re-evaluation by your physician. Follow up: Emergency Department; When: As needed; Reason: Worsening of condition. snw
[2019-04-15 02:37] VITALS: TEMP 98.2
[2019-04-15 02:38] VITALS: BP 138/77; O2SAT 98
--- NOTE | 2019-04-15 11:20 | RAD REPORT ---
EXAM DESCRIPTION: RAD - Lumbar Spine 3 Views - 04/14/2019 11:14 pm CLINICAL HISTORY: Back pain FINDINGS: The alignment of the lumbar spine is satisfactory. No fracture or dislocation is seen. Mild to moderate spondylosis involves L4-5 and L5-S1 consisting disc space narrowing and osteophytes. The bones are osteoporotic. Calcifications overlying the right abdomen may represent calcified gallstones or renal calculi
--- NOTE | 2019-04-18 14:59 | RAD REPORT ---
EXAM DESCRIPTION: CT - Head C Spine Mpr Wo Con - 04/15/2019 6:16 am CLINICAL HISTORY: Dizziness COMPARISON: None Available. TECHNIQUE: Multiple helical axial tomographic images were obtained of the head and cervical spine wi thout intravenous contrast. Coronal and sagittal reformatted images were obtained. This exam was perf ormed according to our departmental dose-optimization program, which includes automated exposure cont rol, adjustment of the mA and/or kV according to patient size and/or use of iterative reconstruction technique. FINDINGS: Mild generalized brain volume loss is demonstrated. There is mild patchy hypoattenuation i n the periventricular and subcortical white matter suggestive of chronic microvascular ischemic morgan es. There is no acute intracranial hemorrhage. No mass. No midline shift. No ventriculomegaly. Kovacs-w tamika matter differentiation is maintained. There is trace paranasal sinus mucosal thickening. Mastoid air cells and middle ear spaces are clear. Orbits and orbital contents are unremarkable. No evidence for an acute calvarial fracture. No evidence for an acute fracture of the cervical spine. No subluxation. Vertebral body heights and d isc spaces appear maintained. There are facet joint degenerative changes most significant on the left at C4-C5. Surrounding soft tissues are unremarkable. IMPRESSION: 1. No acute intracranial process. 2. No evidence for an acute fracture of the cervical spine. Electronically signed by: Vikas Ortiz MD 04/14/2019 11:44 PM ORDNANCE MECHANIC Due to temporary technical issues with the PACS/Fluency reporting system, reports are being signed by the in house radiologist as a courtesy to ensure prompt reporting. The interpreting radiologist is f ully responsible for the content of the report.
== END 2019-04-15 01:32 | disposition home or self-care (01) ==
LOC: ER 21:14
DX: E11.649 Type 2 diabetes mellitus with hypoglycemia without coma (principal); M54.16 Radiculopathy, lumbar region; Z88.0 Allergy status to penicillin; I10 Essential (primary) hypertension
CPT/HCPCS: 70450; 72100; 72125; 81003; 81015; 82947; 87086; 87088; 87804; 96372; 99284

== ENCOUNTER 2023-01-29 12:03 | Emergency (ER) | payer MEDICARE ==
--- OUTSIDE RECORDS SUMMARY | 2023-01-29 12:06 | XMS REPORT | Continuity of Care Document ---
:1945 Author Organization [facility] t Address [address] [place] [address] Care Team Providers Name Role Phone ELLEN Attending Clinician Unavailable ROXANNE Attending Clinician Unavailable Ray Carrasco Attending Clinician [phone] ELLEN Admitting Clinician Unavailable ROXANNE Admitting Clinician Unavailable Payers Payer Name Policy Type Policy Number Effective Date Expiration Date S adelina [employer] [id number] 2020 (MEDICARE 00:00:00 REPLACEMENT HMO) Problems This patient has no known problems. Allergies, Adverse Reactions, Alerts Allergy Allergy Status Severity Reaction(s) Onset Inactive Treating Comm ents Source Name Type Date Date Clinician ADHESIVE Allergy Active [facility] TAPE to Medical substanc Group e Aspirin Allergy Active [facility] to Medical substanc Group e PENICILL Allergy Active [facility] INS to Medical substanc Group e Medications Ordered Filled Start Stop Current Ordering Indication Dosage Frequency Signature Comments Components Source Medication Medication Date Date Medication? Clinician (SIG) Name Name albuterol albuterol No albuterol [facility] sulfate HFA sulfate HFA sulfate Medical 90 90 HFA 90 Group mcg/actuati mcg/actuati mcg/actuat on aerosol on aerosol ion inhaler inhaler aerosol INHALE 2 INHALE 2 inhaler PUFFS BY PUFFS BY INHALE 2 MOUTH EVERY MOUTH EVERY PUFFS BY 6 HOURS 6 HOURS MOUTH NEEDED FOR NEEDED FOR EVERY 6 SHORTNESS SHORTNESS HOURS OF BREATH OF BREATH NEEDED FOR SHORTNESS OF BREATH Benadryl Benadryl No 1 Q4H Benadryl Dev oted Allergy 25 Allergy 25 Allergy 25 Medical mg tablet mg tablet mg tablet Group Take 1 Take 1 Take 1 tablet tablet tablet every 4 every 4 every 4 hours by hours by hours by oral route oral route oral route as as as directed. directed. directed. Calcium 500 Calcium 500 No Calcium [facility] Take 2 Take 2 500 Take 2 Medic al tablets PO tablets PO tablets PO Group Daily Daily Daily Colace 100 Colace 100 No 1capsul Q1D Colace 100 Devoted mg capsule mg capsule e(s) mg capsule Medical Take 1 Take 1 Take 1 Group capsule capsule capsule every day every day every day by oral by oral by oral route as route as route as directed. directed. directed. esomeprazol esomeprazol No esomeprazo [facility] e magnesium e magnesium le M edical 20 mg 20 mg magnesium Group capsule,del capsule,del 20 mg ayed ayed capsule,de release release layed TAKE 1 TAKE 1 release CAPSULE BY CAPSULE BY TAKE 1 MOUTH ONCE MOUTH ONCE CAPSULE BY DAILY DAILY MOUTH ONCE DAILY Fish Oil Fish Oil No Fish Oil Dev oted 2,000 mg 2,000 mg 2,000 mg Med ical Daily as Daily as Daily as Jacklyn up directed directed directed glimepiride glimepiride No glimepirid Devoted 4 mg tablet 4 mg tablet e 4 mg Medical TAKE 1 TAKE 1 tablet Group TABLET BY TABLET BY TAKE 1 MOUTH ONCE MOUTH ONCE TABLET BY DAILY WITH DAILY WITH MOUTH ONCE BREAKFAST BREAKFAST DAILY WITH OR THE OR THE BREAKFAST FIRST MAIN FIRST MAIN OR THE MEAL OF THE MEAL OF THE FIRST MAIN DAY DAY MEAL OF THE DAY ibandronate ibandronate No ibandronat Devoted 150 mg 150 mg e 150 mg Medical tablet TAKE tablet TAKE tablet Group 1 TABLET BY 1 TABLET BY TAKE 1 MOUTH ONCE MOUTH ONCE TABLET BY EVERY MONTH EVERY MONTH MOUTH ONCE EVERY MONTH lisinopril lisinopril No lisinopril Devoted 20 mg 20 mg 20 mg Medical tablet TAKE tablet TAKE tablet Group 1 TABLET BY 1 TABLET BY TAKE 1 MOUTH ONCE MOUTH ONCE TABLET BY DAILY FOR DAILY FOR MOUTH ONCE 90 DAYS 90 DAYS DAILY FOR 90 DAYS metformin metformin No metformin Devoted 1,000 mg 1,000 mg 1,000 mg Med ical tablet TAKE tablet TAKE tablet Group 1 TABLET BY 1 TABLET BY TAKE 1 MOUTH TWICE MOUTH TWICE TABLET BY DAILY WITH DAILY WITH MOUTH MEALS MEALS TWICE DAILY WITH MEALS montelukast montelukast No montelukas Devoted 10 mg 10 mg t 10 mg Medical tablet TAKE tablet TAKE tablet Group 1 TABLET BY 1 TABLET BY TAKE 1 MOUTH ONCE MOUTH ONCE TABLET BY DAILY FOR DAILY FOR MOUTH ONCE 90 DAYS 90 DAYS DAILY FOR 90 DAYS OneTouch OneTouch No OneTouch Dev oted Ultra Blue Ultra Blue Ultra Blue Medical Test Strip Test Strip Test Strip Group USE 1 STRIP USE 1 STRIP USE 1 TO CHECK TO CHECK STRIP TO GLUCOSE GLUCOSE CHECK ONCE DAILY ONCE DAILY GLUCOSE ONCE DAILY Ultra Thin Ultra Thin No Ultra Thin Devoted Lancets 30 Lancets 30 Lancets 30 Medical gauge USE gauge USE gauge USE Group DIRECTED DIRECTED TO CHECK TO CHECK DIRECTED BLOOD SUGAR BLOOD SUGAR TO CHECK ONCE A DAY ONCE A DAY BLOOD DIRECTED DIRECTED SUGAR ONCE A DAY DIRECTED Vitamin D Vitamin D No Vitamin D Devoted 5,000 5,000 5,000 Medical internation internation internatio Group al units PO al units PO nal units daily as daily as PO daily directed directed as directed Procedures This patient has no known procedures. Encounters Start End Encounter Admission Attending Care Care Encounter Source Date/Time Date/Time Type Type Clinicians Facility Department ID 2020-09-23 2020-09-23 Outpatient ELLEN MCOCY [id number] [facility] 10:52:00 10:52:00 [id number] Medica l 2020-08-21 2020-08-21 Outpatient ROXANNE MCCOYG [id number] [facility] 09:08:00 09:08:00 [id number] Medica l Group 2020-08-21 2020-08-21 Ray STOCKTON MA - [id number] D evoted 00:00:00 00:00:00 Nestor Carrasco FUNERAL DIRECTOR AND EMBALMER: [facility] [address] [address], [address], [place] [address] , Ph. 2020-08-21 2020-08-21 Outpatient MAHIN Carrasco [id number] 00:00:00 00:00:00 Ray [id number] Nestor [id number] 2020-08-15 2020-08-15 Outpatient ROXANNE MCCOY [id number] [facility] 01:44:00 01:44:00 [id number] Medica yoel [place] Results This patient has no known results.
--- NOTE | 2023-01-29 12:22 | ER ---
Nurse's Notes [facility] Name: Elmira Jones Age: 77 yrs Sex: Female : 1945 Arrival Date: 01/29/2023 Time: 12:03 Bed IW1 Private MD: Diagnosis: Cellulitis of face Presentation: 01/29 12:13 Chief complaint: Had eyebrows microbladed 6 days ago, c/o redness and bilateral upper hb eyelid swelling. Coronavirus screen: At this time, the client does not indicate any symptoms associated with coronavirus-19. Ebola Screen: No symptoms or risks identified at this time. Initial Sepsis Screen: Does the patient meet any 2 criteria? No. Patient's initial sepsis screen is negative. Does the patient have a suspected source of infection? No. Patient's initial sepsis screen is negative. Risk Assessment: Do you want to hurt yourself or someone else? Patient reports no desire to harm self or others. Onset of symptoms was January 23, 2023. 12:13 Method Of Arrival: Ambulatory hb 12:13 Acuity: CM 4 hb Triage Assessment: 12:16 General: Appears in no apparent distress. Behavior is calm, cooperative. Pain: Pain hb currently is 1 out of 10 on a pain scale. Neuro: Level of Consciousness is awake, alert, obeys commands, Oriented to person, place, time, situation. Cardiovascular: Patient's skin is warm and dry. Respiratory: Respiratory effort is even, unlabored, Respiratory pattern is regular, symmetrical. Historical: - Allergies: 12:15 PENICILLINS; hb 12:15 Adhesives; hb 12:15 Aspirin; hb - Home Meds: 12:15 Glipizide Oral [Active]; lisinopril Oral [Active]; hb - PMHx: 12:15 Asthma; Diabetes - NIDDM; Hypertension; hb - Immunization history:: Adult Immunizations up to date. - Social history:: Smoking status: Patient denies any tobacco usage or history of. - Family history:: not pertinent. - Hospitalizations: : No recent hospitalization is reported. Screenin:16 [facility] ED Fall Risk Assessment (Adult) Score/Fall Risk Level 0 - 2 = Low Risk hb Oriented to surroundings, Maintained a safe environment. Abuse screen: Denies threats or abuse. Denies injuries from another. Nutritional screening: No deficits noted. Tuberculosis screening: No symptoms or risk factors identified. Assessment: 12:16 General: See triage . hb Vital Signs: 12:13 BP 162 / 81; Pulse 98; Resp 16; Temp 97.7(TE); Pulse Ox 96% on R/A; Weight 70.76 kg; hb Height 5 ft. 4 in. ; Pain 1/10; 12:13 Body Mass Index 26.78 (70.76 kg, 162.56 cm) hb 12:13 Pain Scale: Adult hb ED Course: 12:09 Patient arrived in ED. gm2 12:10 Christoph Miller MD is Attending Physician. rn 12:15 Triage completed. hb 12:16 Arm band placed on. hb 12:16 Patient has correct armband on for positive identification. Provided Education on: . hb 12:16 No provider procedures requiring assistance completed. Patient did not have IV access hb during this emergency room visit. 12:32 Mindy Davidson, RN is Primary Nurse. hb Administered Medications: No medications were administered Medication: 12:16 VIS not applicable for this client. hb Outcome: 12:22 Discharge ordered by . rn 12:30 Discharged to home ambulatory, hb 12:30 Condition: stable 12:30 Discharge instructions given to patient, Instructed on discharge instructions, follow up and referral plans. medication usage, Demonstrated understanding of instructions, follow-up care, medications, Prescriptions given X 2, 12:32 Patient left the ED. hb Signatures: Christoph Miller MD MD rn Baxter, Heather, RN Sonja Rodriguez gm2 Corrections: (The following items were deleted from the chart) 12:16 12:13 BP 162 / 81; Pulse 98bpm; Resp 16bpm; Pulse Ox 96% RA; Temp 97.7F Temporal; hb hb
--- NOTE | 2023-01-29 12:22 | EDPHYS ---
Physician Documentation [facility] Name: Elmira Jones Age: 77 yrs Sex: Female : 1945 Arrival Date: 01/29/2023 Time: 12:03 Bed IW1 Private MD: ED Physician Christoph Miller HPI: 01/29 12:18 This 77 yrs old Female presents to ER via Ambulatory with complaints of Eye rn Swelling. 12:18 to both eyes. Onset: The symptoms/episode began/occurred 5 day(s) ago. Duration: the rn symptoms are continuous. Aggravated by nothing. Alleviated by nothing. Severity of symptoms: At their worst the symptoms were moderate in the emergency department the symptoms are unchanged. The patient has not experienced similar symptoms in the past. Patient reports had eyebrows done 6 days ago, had eyebrows tattooed, since then has noticed increased inflammation and redness around the eyebrows but now having swelling of bilateral upper eyelids. No fever. No trouble swallowing or rash elsewhere. No pain in eye proper. No ocular drainage.. Historical: - Allergies: 12:15 PENICILLINS; hb 12:15 Adhesives; hb 12:15 Aspirin; hb - Home Meds: 12:15 Glipizide Oral [Active]; lisinopril Oral [Active]; hb - PMHx: 12:15 Asthma; Diabetes - NIDDM; Hypertension; hb - Immunization history:: Adult Immunizations up to date. - Social history:: Smoking status: Patient denies any tobacco usage or history of. - Family history:: not pertinent. - Hospitalizations: : No recent hospitalization is reported. ROS: 12:18 Constitutional: Negative for fever, chills, and weight loss, Eyes: Positive for rn periorbital swelling and redness Cardiovascular: Negative for chest pain, palpitations, and edema, Respiratory: Negative for shortness of breath, cough, wheezing, and pleuritic chest pain, Neuro: Negative for headache, weakness, numbness, tingling, and seizure, Exam: 12:18 Constitutional: This is a well developed, well nourished patient who is awake, alert, rn and in no acute distress. Head/Face: Normocephalic, atraumatic. Eyes: Erythema and swelling bilateral brows. Bilateral periorbital swelling, negative for fluctuance. Cornea and conjunctiva not involved. Cardiovascular: Regular rate and rhythm. No pulse deficits. Respiratory: No increased work of breathing, no retractions or nasal flaring. Vital Signs: 12:13 BP 162 / 81; Pulse 98; Resp 16; Temp 97.7(TE); Pulse Ox 96% on R/A; Weight 70.76 kg; hb Height 5 ft. 4 in. ; Pain /10; 12:13 Body Mass Index 26.78 (70.76 kg, 162.56 cm) hb 12:13 Pain Scale: Adult hb MDM: 12:10 Patient medically screened. rn 12:18 Differential diagnosis: Cellulitis, allergic reaction. Data reviewed: vital signs, rn nurses notes, and as a result, I will discharge patient. Counseling: I had a detailed discussion with the patient and/or guardian regarding the historical points, exam findings, and any diagnostic results supporting the discharge/admit diagnosis, the need for outpatient follow up, to return to the emergency department if symptoms worsen or persist or if there are any questions or concerns that arise at home. Special discussion: I discussed with the patient/guardian in detail that at this point there is no indication for admission to the hospital. It is understood, however, that if the symptoms persist or worsen the patient needs to return immediately for re-evaluation. Based on the history and exam findings, there is no indication for further emergent testing or inpatient evaluation. I discussed with the patient/guardian the need to see the primary care provider for further evaluation of the symptoms. 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 Opioid Use rn - Patient Portal Instructions rn - Leadership Thank You Letter rn Prescriptions: - Medrol (Aaron) 4 mg Oral Tablets, Dose Pack - take 1 tablet ORAL route as directed - follow package instructions; 1 packet; rn Refills: 0, Product Selection Permitted - Bactrim DS 800-160 mg Oral Tablet - take 1 tablet ORAL route every 12 hours for 10 days; 20 tablet; Refills: 0, rn Product Selection Permitted Signatures: Christoph Miller MD MD rn Baxter, Heather, RN RN hb Corrections: (The following items were deleted from the chart) 12:21 12:18 Constitutional: This is a well developed, well nourished patient who is awake, rn alert, and in no acute distress. Head/Face: Normocephalic, atraumatic. Eyes: Erythema and swelling bilateral brows. Bilateral periorbital swelling, negative for fluctuance. Cornea and conjunctiva not involved. Cardiovascular: Regular rate and rhythm. No pulse deficits. rn
[2023-01-29 12:37] VITALS: BP 162/81; TEMP 97.7; O2SAT 96
== END 2023-01-29 12:32 | disposition home or self-care (01) ==
LOC: ER 12:03
DX: L03.213 Periorbital cellulitis (principal); Z88.0 Allergy status to penicillin; Z88.6 Allergy status to analgesic agent; Z91.048 Other nonmedicinal substance allergy status
CPT/HCPCS: 99283

== ENCOUNTER → 2023-06-07 | Emergency (ER) | payer MEDICARE, OTHER ==
[2023-06-07 16:55] LABS: Absolute Lymphocytes (CBC) 2.3 K/uL (0.7-4.9); Hematocrit 36.9 % (36.0-45.0); Lymphocytes % 58.2 % (15.3-44.8); MCV 85.8 fL (80-100); Platelets 236 thou/uL (152-406)
[2023-06-07 17:05] LABS: Potassium 4.9 mEq/L (3.5-5.1)
[2023-06-07 17:27] LABS: Urine Bacteria <20 /HPF (<20); Urine Bilirubin NEGATIVE (Negative); Urine Blood Negative (Negative); Urine Clarity Clear (Clear); Urine Color Light-Yellow (Yellow); Urine Glucose 3+ (Negative); Urine Mucus Slight /HPF (None Seen); Urine Protein TRACE (Negative); Urine RBC <5 /HPF (None Seen); Urine Urobilinogen Normal (Normal); Urine pH 5.5 (5.0-7.0)
--- NOTE | 2023-06-07 18:04 | EDPHYS ---
Physician Documentation [facility] Name: Elmira Jones Age: 77 yrs Sex: Female : 1945 Arrival Date: 06/07/2023 Time: 14:50 Bed 20 Private MD: ED Physician Ang Cannon HPI: 06/07 16:55 This 77 yrs old Female presents to ER via Ambulatory with complaints of Kidney ms3 Failure. 16:55 77-year-old female with past medical history of asthma, diabetes, hypertension presents ms3 to the emergency department for possible kidney failure. Patient denies any alleviating or inciting factors. Patient denies pain, nausea, vomiting, diarrhea. Historical: - Allergies: 15:24 Adhesives; tl4 15:24 Aspirin; tl4 15:24 PENICILLINS; tl4 - Home Meds: 15:24 lisinopril 10 mg oral tablet 1 tab daily [Active]; rosuvastatin 5 mg oral tablet 1 tab tl4 daily [Active]; metformin 1,000 mg Oral tablet 1 tab 2 times per day [Active]; esomeprazole magnesium 20 mg oral capsule,delayed release (e.c.) 1 cap daily [Active]; montelukast 10 mg oral tablet 1 tab daily [Active]; - PMHx: 15:24 Asthma; Diabetes - NIDDM; Hypertension; tl4 - Immunization history:: Adult Immunizations unknown. - Social history:: Smoking status: Patient denies any tobacco usage or history of. ROS: 16:55 Constitutional: Negative for fever, and chills. Neck: Negative for injury, pain, and ms3 swelling, Cardiovascular: Negative for chest pain, and palpitations. Respiratory: Negative for shortness of breath, cough, wheezing, and pleuritic chest pain, Abdomen/GI: Negative for abdominal pain, nausea, vomiting, diarrhea, and constipation, MS/Extremity: Negative for injury and deformity, Skin: Negative for injury, rash, and discoloration, Exam: 16:55 Constitutional: This is a well developed, well nourished patient who is awake, alert, ms3 and in no acute distress. Head/Face: Normocephalic, atraumatic. Neck: Trachea midline, no cervical lymphadenopathy. Supple, full range of motion without nuchal rigidity, or vertebral point tenderness. No Meningismus. Chest/axilla: Normal chest wall appearance and motion. Nontender with no deformity. Cardiovascular: Regular rate and rhythm with a normal S1 and S2. No gallops, murmurs, or rubs. Normal PMI, no JVD. No pulse deficits. Respiratory: Lungs have equal breath sounds bilaterally, clear to auscultation and percussion. No rales, rhonchi or wheezes noted. No increased work of breathing, no retractions or nasal flaring. Abdomen/GI: Soft, non-tender, with normal bowel sounds. No distension or tympany. No guarding or rebound. No evidence of tenderness throughout. Skin: Warm, dry with normal turgor. Normal color with no rashes, no lesions, and no evidence of cellulitis. MS/ Extremity: Pulses equal, no cyanosis. Neurovascular intact. Full, normal range of motion. Vital Signs: 15:19 BP 127 / 60; Pulse 76; Resp 18; Temp 98.2; Pulse Ox 98% on R/A; Weight 72.12 kg; Height tl4 5 ft. 4 in. ; Pain 0/10; 16:30 BP 119 / 59; Pulse 62; Resp 15; Pulse Ox 99% ; ko1 15:19 Body Mass Index 27.29 (72.12 kg, 162.56 cm) tl4 15:19 Pain Scale: Adult tl4 MDM: 15:27 Patient medically screened. ms3 16:55 Differential Diagnosis Renal failure versus electrolyte abnormality versus anemia. ms3 18:06 Data reviewed: vital signs, nurses notes, lab test result(s), and as a result, I will ms3 discharge patient. Consideration of Admission/Observation Escalation of care including admission/observation considered. Cr 0.87 at this time vs 3.58 on June 04, 2023. Management of patient was discussed with the following: Primary Care Provider: Dr Francois. External Records Reviewed: Outpatient labs: CBC collected June 04, 2023 white blood count 5.6, hemoglobin 13.2, hematocrit 40.1, platelets 248. Electrolytes sodium 136, potassium 4.7, chloride 94, carbon oxide 16, calcium 10.1, creatinine 3.58, BUN 55, GFR 13. LFTs alk phos 54, AST 29, ALT 19.. Counseling: I had a detailed discussion with the patient and/or guardian regarding the historical points, exam findings, and any diagnostic results supporting the discharge/admit diagnosis, lab results, the need for outpatient follow up, to return to the emergency department if symptoms worsen or persist or if there are any questions or concerns that arise at home. Special discussion: I discussed with the patient/guardian in detail that at this point there is no indication for admission to the hospital. It is understood, however, that if the symptoms persist or worsen the patient needs to return immediately for re-evaluation. ED course: Discussed labs with patient and my conversation with Dr. Francois. Patient to follow-up with primary care physician in 1 week as scheduled. All questions were answered. Return precautions discussed include worsening symptoms, or any other concerns.. 06/07 15:28 Order name: CBC with Diff; Complete Time: 17:24 ms3 06/07 15:28 Order name: BMP; Complete Time: 17:24 ms3 06/07 15:28 Order name: Urinalysis w/ reflexes; Complete Time: 17:57 ms3 Administered Medications: No medications were administered Disposition Summary: 06/07/23 18:04 Discharge Ordered Notes: Location: Home ms3 Condition: Stable ms3 Diagnosis - Chronic kidney disease, stage 2 (mild) ms3 Followup: ms3 - With: Anish Gross DO - When: 1 week - Reason: Recheck today's complaints Discharge Instructions: - Discharge Summary Sheet ms3 - Chronic Kidney Disease, Adult, [id number] ms3 Forms: - Medication Reconciliation Form ms3 - Thank You Letter ms3 - Antibiotic Education ms3 - Prescription Opioid Use ms3 - Patient Portal Instructions ms3 - Leadership Thank You Letter ms3 Signatures: Dispatcher [employer] EDMS Ang Cannon DO DO ms3 Phu Rodriguez tl4 Corrections: (The following items were deleted from the chart) 15:27 15:24 Home Meds: oseltamivir 75 mg oral capsule 1 cap 2 times per day; tl4 tl4
--- NOTE | 2023-06-07 18:04 | ER ---
Nurse's Notes [facility] Name: Elmira Jones Age: 77 yrs Sex: Female : 1945 Arrival Date: 06/07/2023 Time: 14:50 Bed 20 Private MD: Diagnosis: Chronic kidney disease, stage 2 (mild) Presentation: 06/07 15:19 Chief complaint: Patient states: Pt was sent here by PCP for a "kidney failure tl4 evaluation" after having a UA today. Pt is flu+. Pt c/o ongoing diarrhea. Pt denies N/V, urinary sxs. Coronavirus screen: Vaccine status: Patient reports receiving the 2nd dose of the covid vaccine. Ebola Screen: Patient negative for fever greater than or equal to 101.5 degrees Fahrenheit, and additional compatible Ebola Virus Disease symptoms Patient denies exposure to infectious person. Patient denies travel to an Ebola-affected area in the 21 days before illness onset. No symptoms or risks identified at this time. Initial Sepsis Screen: Does the patient meet any 2 criteria? No. Patient's initial sepsis screen is negative. Does the patient have a suspected source of infection? No. Patient's initial sepsis screen is negative. Risk Assessment: Do you want to hurt yourself or someone else? Patient reports no desire to harm self or others. Onset of symptoms is unknown. 15:19 Method Of Arrival: Ambulatory tl4 15:19 Acuity: CM 3 tl4 Triage Assessment: 15:27 General: Appears uncomfortable, Behavior is calm, cooperative. Pain: Denies pain. EENT: tl4 No deficits noted. No signs and/or symptoms were reported regarding the EENT system. Neuro: No deficits noted. Cardiovascular: No deficits noted. Denies chest pain, diaphoresis, lightheadedness, palpitations. Respiratory: No deficits noted. Denies cough, shortness of breath. GI: Reports diarrhea. : No deficits noted. No signs and/or symptoms were reported regarding the genitourinary system. Historical: - Allergies: 15:24 Adhesives; tl4 15:24 Aspirin; tl4 15:24 PENICILLINS; tl4 - Home Meds: 15:24 lisinopril 10 mg oral tablet 1 tab daily [Active]; rosuvastatin 5 mg oral tablet 1 tab tl4 daily [Active]; metformin 1,000 mg Oral tablet 1 tab 2 times per day [Active]; esomeprazole magnesium 20 mg oral capsule,delayed release (e.c.) 1 cap daily [Active]; montelukast 10 mg oral tablet 1 tab daily [Active]; - PMHx: 15:24 Asthma; Diabetes - NIDDM; Hypertension; tl4 - Immunization history:: Adult Immunizations unknown. - Social history:: Smoking status: Patient denies any tobacco usage or history of. Screenin:30 [facility] ED Fall Risk Assessment (Adult) History of falling in the last 3 months, ko1 including since admission No falls in past 3 months (0 pts) Confusion or Disorientation No (0 pts) Intoxicated or Sedated No (0 pts) Impaired Gait No (0 pts) Mobility Assist Device Used No (0 pt) Altered Elimination No (0 pt) Score/Fall Risk Level 0 - 2 = Low Risk Oriented to surroundings, Maintained a safe environment, Educated pt \\T\\ family on fall prevention, incl call for assistance when getting out of bed, Assessed \\T\\ reinforced patient's understanding of fall precautions, Provided non-skid footwear, Hourly rounding (assess needs \\T\\ fall precautionary measures) done, Used ambulatory aids as needed (educated on \\T\\ assisted with), Used gait belt as appropriate. Abuse screen: Denies threats or abuse. Denies injuries from another. Nutritional screening: No deficits noted. Tuberculosis screening: No symptoms or risk factors identified. Assessment: 16:30 Neuro: No deficits noted. Cardiovascular: No deficits noted. Respiratory: No deficits ko1 noted. GI: No deficits noted. 16:30 : Reports sent from pcp. ko1 16:30 EENT: No deficits noted. Derm: No deficits noted. Musculoskeletal: No deficits noted. ko1 Vital Signs: 15:19 BP 127 / 60; Pulse 76; Resp 18; Temp 98.2; Pulse Ox 98% on R/A; Weight 72.12 kg; Height tl4 5 ft. 4 in. ; Pain 0/10; 16:30 BP 119 / 59; Pulse 62; Resp 15; Pulse Ox 99% ; ko1 15:19 Body Mass Index 27.29 (72.12 kg, 162.56 cm) tl4 15:19 Pain Scale: Adult tl4 ED Course: 14:54 Patient arrived in ED. mg5 15:09 Ang Cannon DO is Attending Physician. ms3 15:24 Triage completed. tl4 15:28 Arm band placed on left wrist. tl4 16:19 Romy Barajas, RN is Primary Nurse. ko1 16:25 Inserted saline lock: 22 gauge in right forearm, using aseptic technique. Blood ko1 collected. 16:30 Patient has correct armband on for positive identification. Allergy band placed. Bed in ko1 low position. Call light in reach. Side rails up X 1. Provided Education on: na. Client placed on continuous cardiac and pulse oximetry monitoring. NIBP monitoring applied. backfiller on. Door closed. Noise minimized. Lights dimmed. Warm blanket given. 16:30 BMP Sent. ko1 16:30 CBC with Diff Sent. ko1 16:30 No provider procedures requiring assistance completed. ko1 17:14 Urinalysis w/ reflexes Sent. ko1 18:03 Anish Gross DO is Referral Physician. ms3 18:13 IV discontinued, intact, bleeding controlled, No redness/swelling at site. Pressure ko1 dressing applied. Administered Medications: No medications were administered Medication: 16:30 VIS not applicable for this client. ko1 Outcome: 18:04 Discharge ordered by MD. ms3 18:13 Discharged to home ambulatory, with family, ko1 18:13 Condition: stable 18:13 Discharge instructions given to patient, family, Instructed on discharge instructions, follow up and referral plans. Demonstrated understanding of instructions, follow-up care, 18:14 Patient left the ED. ko1 Signatures: Ang Cannon DO DO ms3 Romy Barjaas, RN RN ko1 Bailey Kelsey mg5 Phu Rodriguez tl4 Corrections: (The following items were deleted from the chart) 15:27 15:24 Home Meds: oseltamivir 75 mg oral capsule 1 cap 2 times per day; tl4 tl4 17:50 16:30 : Reports ko1 ko1
[2023-06-07 22:44] VITALS: BP 119/59; TEMP 98.2; O2SAT 99
== END ==
LOC: ER 14:50
DX: E11.22 Type 2 diabetes mellitus with diabetic chronic kidney disease (principal); I12.9 Hypertensive chronic kidney disease with stage 1 through stage 4 chronic kidney disease, or unspecified chronic kidney disease; N18.2 Chronic kidney disease, stage 2 (mild); Z88.0 Allergy status to penicillin; Z88.6 Allergy status to analgesic agent; Z91.048 Other nonmedicinal substance allergy status
CPT/HCPCS: 36415; 80048; 81001; 85025